=== PATIENT | female | born 1935 | race Caucasian/White ===

== ENCOUNTER → 2016-03-27 | Outpatient (CLI) | payer BC ==
[~2016-03-27] MED LIST: AMLO-114 PO; ASPEC81 PO; B-COTAB18 SL; CALC600T9 PO; CHOL1TAB42 PO; CLR10 PO; COEN10CA5 PO; DIFL0.0519; ESCI1TAB6 PO; LEVO88TA3 PO; LOSA100T65 PO; MIRT30TA2 PO; MULT-506 PO; OMEG10007 PO; PRT/20 PO; RANI300T2 PO; SIMV20TA2 PO
[2016-03-27 12:03] LABS: URINE APPEARANCE CLEAR (CLEAR); URINE BILIRUBIN NEG (NEG); URINE COLOR DK YELLOW; URINE NITRITE NEG (NEG); URINE PH 7.5 (4.5-7.5); URINE SPECIFIC GRAVITY 1.013 (1.000-1.030); UROBILINOGEN NEG (NEG)
[2016-03-27 12:05] LABS: MANUAL MICROSCOPIC REQUIRED? NO; REVIEW REQ? NO
== END | disposition home or self-care (01) ==
LOC: C.LAB 10:24
PROVIDERS: ATTEND Nurse Practitioner Family
DX: R32 Unspecified urinary incontinence (principal); R35.0 Frequency of micturition

== ENCOUNTER → 2016-05-02 | Outpatient (CLI) | payer BC | END | disposition home or self-care (01) | LOC: C.LAB 07:09 | PROVIDERS: ATTEND Family Medicine | DX: E03.9 Hypothyroidism, unspecified (principal) ==

== ENCOUNTER → 2016-05-22 | Outpatient (CLI) | payer BC | END | disposition home or self-care (01) | LOC: C.LABSPEC 17:10 | PROVIDERS: ATTEND Nurse Practitioner Family | DX: R32 Unspecified urinary incontinence (principal); R35.0 Frequency of micturition ==

== ENCOUNTER → 2016-08-16 | Outpatient (CLI) | payer BC ==
[2016-08-16 09:28] LABS: BASO % 1.3 %; BASO ABS # 0.07 K/uL (0-0.2); COMPLETE YES; EOS % 5.6 %; HEMATOCRIT 40.3 % (37-47); IG% 0.2 %; LYMPH % 28.8 %; LYMPH ABS # 1.55 K/uL (1.2-3.4); MEAN CORPUSCULAR HEMOGLOBIN 30.4 pg (25-34); MEAN PLATELET VOLUME 10.5 fL (7.4-10.4); MONO % 9.8 %; NEUT % 54.3 %; PLATELET COUNT 258 K/uL (130-400); RED BLOOD COUNT 4.24 M/uL (4.2-5.4); WHITE BLOOD COUNT 5.39 K/uL (4.8-10.8)
[2016-08-16 09:40] LABS: CALCIUM 9.2 mg/dl (8.5-10.1)
[2016-08-16 09:44] LABS: ALT/SGPT 30 U/L (12-78); BLOOD UREA NITROGEN 19 mg/dl (7-18); BUN/CREATININE RATIO 22.3 (10-20); CARBON DIOXIDE 29 mmol/L (21-32); CHLORIDE 108 mmol/L (98-107); CHOLESTEROL 197 mg/dl (0-200); CREATININE 0.86 mg/dl (0.60-1.20); GLUCOSE 92 mg/dl (70-99); POTASSIUM 4.1 mmol/L (3.5-5.1); SODIUM 145 mmol/L (136-145); TRIGLYCERIDES 182 mg/dl (0-150); VERY LOW DENSITY LIPOPROT CALC 36 mg/dl
[2016-08-16 09:47] LABS: ALB/GLOB RATIO 1.2 (0.9-2); ALKALINE PHOSPHATASE 72 U/L (45-117); AST/SGOT 19 U/L (15-37); CHOLESTEROL/HDL RATIO 4.2; HDL CHOLESTEROL 47 mg/dl; LDL CHOLESTEROL CALCULATED 114 mg/dl
== END | disposition home or self-care (01) ==
LOC: C.LAB 07:02
PROVIDERS: ATTEND Nurse Practitioner Adult Health
DX: I10 Essential (primary) hypertension (principal)

== ENCOUNTER → 2016-08-24 | Outpatient (CLI) | payer BC ==
--- NOTE | 2016-08-24 14:43 | MAMMOGRAPHY REPORT ---
BILATERAL DIGITAL SCREENING MAMMOGRAM WITH CAD: 08/24/2016 CLINICAL HISTORY: Routine screening. TECHNIQUE: Current study was also evaluated with a Computer Aided Detection (CAD) system. Bilateral CC and MLO views were obtained. COMPARISON: Comparison is made to exams dated: 08/24/2015 mammogram, 08/19/2014 mammogram, 08/18/2013 mamm ogram, 08/16/2012 mammogram, 08/16/2011 mammogram, and 08/10/2010 mammogram - [facility] er. BREAST COMPOSITION: There are scattered areas of fibroglandular density in both breasts. FINDINGS: No suspicious masses, calcifications, or areas of architectural distortion are noted in ei ther breast. There has been no significant interval change compared to prior exams. IMPRESSION: ACR BI-RADS CATEGORY 1: NEGATIVE There is no mammographic evidence of malignancy. A 1 year screening mammogram is recommended. The pa tient will receive written notification of the results. Approximately 10% of breast cancers are not detected with mammography. A negative mammographic report should not delay biopsy if a clinically suggestive mass is present. Valentina Monreal M.D. ah/:08/24/2016 10:28:22 Program Services Assistant: Austin MARISCAL(R)(M), [facility] letter sent: Normal 1/2 BI-RADS Code: ACR BI-RADS Category 1: Negative
== END | disposition home or self-care (01) ==
LOC: C.MAMM 09:40
PROVIDERS: ATTEND Obstetrics & Gynecology
DX: Z12.31 Encounter for screening mammogram for malignant neoplasm of breast (principal)

== ENCOUNTER → 2017-04-02 | Outpatient (CLI) | payer BC ==
[2017-04-02 09:42] LABS: BASO % 1.7 %; BASO ABS # 0.11 K/uL (0-0.2); EOS % 5.5 %; EOS ABS # 0.35 K/uL (0-0.5); HEMATOCRIT 40.6 % (37-47); HEMOGLOBIN 13.5 g/dL (12.0-16.0); IG# 0.01 K/uL (0.00-0.02); LYMPH % 27.1 %; LYMPH ABS # 1.74 K/uL (1.2-3.4); MEAN CELL VOLUME 93.8 fL (80-100); MEAN CORPUSCULAR HEMOGLOBIN 31.2 pg (25-34); MEAN CORPUSCULAR HGB CONC 33.3 g/dl (32-36); MEAN PLATELET VOLUME 11.1 fL (7.4-10.4); MONO ABS # 0.58 K/uL (0.11-0.59); NEUT % 56.5 %; NEUT ABS # 3.63 K/uL (1.4-6.5); PLATELET COUNT 251 K/uL (130-400); RED CELL DISTRIBUTION WIDTH CV 13.5 % (11.5-14.5); RED CELL DISTRIBUTION WIDTH SD 46.5 fL (36.4-46.3); WHITE BLOOD COUNT 6.42 K/uL (4.8-10.8)
[2017-04-02 10:26] LABS: ALT/SGPT 30 U/L (12-78); BLOOD UREA NITROGEN 14 mg/dl (7-18); CALCIUM 9.5 mg/dl (8.5-10.1); CARBON DIOXIDE 27 mmol/L (21-32); CHOLESTEROL 178 mg/dl (0-200); CREATININE 0.85 mg/dl (0.60-1.20); GLUCOSE 88 mg/dl (70-99); SODIUM 140 mmol/L (136-145)
[2017-04-02 10:37] LABS: ALKALINE PHOSPHATASE 62 U/L (45-117); AST/SGOT 23 U/L (15-37); LDL CHOLESTEROL CALCULATED 90 mg/dl; TOTAL PROTEIN 7.3 gm/dl (6.4-8.2)
== END | disposition home or self-care (01) ==
LOC: C.LAB 07:23
PROVIDERS: ATTEND Nurse Practitioner Adult Health
DX: E03.9 Hypothyroidism, unspecified (principal); R73.03 Prediabetes; E78.00 Pure hypercholesterolemia, unspecified; I10 Essential (primary) hypertension

== ENCOUNTER → 2017-05-14 | Outpatient (CLI) | payer BC | END | disposition home or self-care (01) | LOC: C.LAB 07:56 | PROVIDERS: ATTEND Family Medicine | DX: E03.9 Hypothyroidism, unspecified (principal) ==

== ENCOUNTER 2017-05-21 18:34 | Emergency (ER) | payer OTHER, BC ==
[~2017-05-21] VITALS: Ht 154.9 cm; Wt 61.3 kg
[2017-05-21 18:39] VITALS: TEMP 36.6; Ht 154.9 cm; Wt 61.3 kg
[2017-05-21 19:09] VITALS: BP 146/73; PULSE 98; O2SAT 94
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
== END 2017-05-21 19:09 | disposition home or self-care (01) ==
LOC: C.EDB 18:35 → C.EDA 19:09
DX: Z04.1 Encounter for examination and observation following transport accident (principal); V44.5XXA Car driver injured in collision with heavy transport vehicle or bus in traffic accident, initial encounter; Y92.411 Interstate highway as the place of occurrence of the external cause; K57.90 Diverticulosis of intestine, part unspecified, without perforation or abscess without bleeding; I10 Essential (primary) hypertension; Z79.82 Long term (current) use of aspirin; Z79.899 Other long term (current) drug therapy

== ENCOUNTER → 2017-10-29 | Outpatient (CLI) | payer BC ==
[~2017-10-29] MED LIST changes: -AMLO-114 PO; +AMLO10TA3 PO
== END | disposition home or self-care (01) ==
LOC: C.MAMM 10:12
PROVIDERS: ATTEND Family Medicine
DX: Z78.0 Asymptomatic menopausal state (principal); M85.89 Other specified disorders of bone density and structure, multiple sites

== ENCOUNTER 2022-11-02 02:21 | Observation (INO) ==
[2022-11-02] MEDS: SODIUM CHLORIDE 0.9% 1000ML 1,000 ML IV SCH ×2 (03:06→11:22)
[2022-11-02 03:30] LABS: Basophils # (auto) 0.07 K/uL (0-0.2); Basophils % (auto) 0.8 %; Eosinophils # (auto) 0.22 K/uL (0-0.50); Eosinophils % (auto) 2.6 %; Hematocrit (blood only) 41.4 % (37.0-47.0); Hemoglobin 13.8 g/dl (12.0-16.0); Immature Granulocytes # (auto) 0.02 K/uL (0.01-0.20); Immature Granulocytes % (auto) 0.2 %; Lymphocytes # (auto) 1.14 K/uL (1.2-3.4); Lymphocytes % (auto) 13.6 %; Mean Corpuscular Hemoglobin 31.4 pg (25.0-34.0); Mean Corpuscular Hgb Conc 33.3 g/dL (32.0-36.0); Mean Corpuscular Volume 94.1 fL (80.0-100.0); Mean Platelet Volume 10.2 fL (9.4-12.4); Monocytes # (auto) 0.62 K/uL (0.11-0.59); Monocytes % (auto) 7.4 %; Neutrophils # (auto) 6.33 K/uL (1.40-6.50); Neutrophils % (auto) 75.4 %; Platelet Count 245 K/uL (130-400); RDW Coefficient of Variation 12.7 % (11.5-14.5); RDW Standard Deviation 44.1 fL (36.4-46.3)
[2022-11-02 03:42] LABS: Calcium 10.7 mg/dl (8.6-10.3); Creatinine Clr Calc Pharmacy 35.8 ml/min; Est GFR (African American) 66.7 ml/min; Est GFR (Non-African American) 57.5 ml/min; Potassium 3.8 mmol/L (3.5-5.1)
[2022-11-02 03:48] LABS: Troponin I High Sensitivity 5.4 pg/ml (0-14)
[2022-11-02 03:51] LABS: Prothrombin Time 11.2 Seconds (9.0-12.0)
--- NOTE | 2022-11-02 03:58 | Emergency Department Note ---
Impression & Plan Abdominal pain, Acute pancreatitis ED Provider Note ED Provider Note NAME: ABBY ROSS AGE:87 SEX: Female : 1935 ARRIVES VIA: private vehicle INFORMANT: Patient ED PROVIDER(s): Aniya Weller DO CHIEF COMPLAINT: abdominal pain HPI: This is an 87-year-old female presents emerged department complaining of abdominal pain. She states symptoms first began this evening around 6 PM. She states pain has been intermittent but sharp in the left upper quadrant radiates slightly into the left flank. She denies fevers or chills, states she has been slightly nauseated with the pain and slightly dizzy, no overt vomiting, no syncope. She denies any recent change in urine, states her stools have been slightly softer/loose. She denies any black or bloody stools. She denies any recent change in activity, change in diet, sick contacts, or travel. She states she did recently start mirtazapine to help with sleep. This was just started 2 days ago. She denies any prior history of PUD, IBS, or IBD. She has had a prior partial hysterectomy, no other abdominal surgeries. PAST MEDICAL HISTORY:See Below PAST SURGICAL HISTORY:See Below FAMILY HISTORY:See Below SOCIAL HISTORY:See Below HOME MEDICATIONS:See Below ALLERGIES:See Below VITALS:See Below PHYSICAL EXAMINATION: GENERAL: alert, well appearing, well nourished, no distress, non-toxic EYE EXAM: normal conjunctiva, PERRL and EOM's grossly intact OROPHARYNX: no exudate, no erythema, lips, buccal mucosa, and tongue normal and mucous membranes are moist NECK: supple, no nuchal rigidity, no adenopathy, non-tender LUNGS: Clear to auscultation. Normal chest wall mechanics, no w/r/r HEART: no murmurs, S1 normal and S2 normal ABDOMEN: abdomen soft, non-tender, normo-active bowel sounds, no masses, no rebound or guarding. BACK: Back is symmetrical on inspection and there is no deformity, no midline tenderness, no CVA tenderness. SKIN: no rashes, petechiae, orbruising UPPER EXTREMITIES: upper extremities are grossly normal. FROM, nml pulses b/l. LOWER EXTREMITIES: No pitting edema. FROM, nml pulses b/l. NEURO EXAM: Normal sensorium, cranial nerves II-XII grossly intact, normal speech, no facial droop,nogross weakness of arms, no gross weakness of legs. Gross sensation intact. No ataxia. Vital Signs: reviewed and remarkable Differential Diagnosis: Gastritis, PUD, GERD, cholecystitis, pancreatitis, colitis, bowel obstruction, mesenteric ischemia, perforation, GI bleed, ACS, dissection, AAA, as well as others were considered MEDICAL DECISION MAKING: This is an 87-year-old female presents emergency department due to abrupt onset of abdominal pain. Patient was afebrile and vital signs stable. Labs drawn and sent, IV established, EKG performed at bedside interpreted by me and patient monitored on telemetry. She was given IV fluids, IV Tylenol for pain. Patient sent for CT of the abdomen pelvis. Patient's labs revealed significantly elevated lipase level, LFTs otherwise unremarkable. CT suggestive of pancreatitis and possible pancreatic lesions. Patient made aware of results and plan as well as need for additional evaluation. Case discussed with the hospitalist team for additional evaluation and management. Consultation(s): 0725: Discussed with Dr. Dyer, [facility] hospitalist team. ER Treatment Provided: See below Diagnostics Interpreted By Me: -ECG: Normal sinus at 82, first-degree AV block, normal axis, normal intervals, no acute ST/T wave changes -Cardiac Monitoring: An order was placed for continuous cardiac monitoring. The monitor shows a rate of 88 with normal sinus rhythm. -Laboratory studies: As stated above and show below. -Imaging studies: CT a/p - no obvious perf or sbo per my interpretation Triage Nursing Note Reviewed Prior/Outside Records Reviewed Past Med/Surg History Medical History Abnormal finding on mammography Anemia due to blood loss (05/20/11) Depression Fibromyalgia GERD without esophagitis Headache History of breast pain History of cellulitis right hand History of genital warts Hypertension Hypothyroidism Osteopenia Peripheral neuropathy Prediabetes Serotonin withdrawal syndrome Urinary incontinence Varicella Vitamin D deficiency Surgical History H/O tubal ligation H/O vaginal hysterectomy Hx of cataract surgery Hx of total knee arthroplasty bilateral knees S/P correction of deviated nasal septum Family History Unknown Prostate cancer Myocardial infarction Father Myocardial infarction Sister Denies family history of Ovarian cancer Breast cancer Colorectal cancer Social History Smoking Status: Former smoker Second Hand Exposure: No; Do You Dip or Chew Tobacco: No; Hx Alcohol Use: Yes Alcohol type: wine Hx Substance Use: No Preferred Language: [place] Communication Ability: Effective Visual Impairment: No Limitations Hearing Ability: Use of Hearing Aid Greaser Operator Required: No Beliefs That Will Affect Care: None marital status: / Current Living Situation: Alone Current Living Situation Comment: daughter and son in law are living with her while their house is built current occupational status: retired current occupation: worked at [employer] How many Children do You have: 2 Feels Safe at Home: Yes Childhood Exposure to Second-Hand Smoke: No Diet: regular caffeine: Yes during the past year weight has: remained stable Dental Care, Regularly: Yes Physical Activity Frequency: 1-2 Times per Week Seatbelt Use: always Sunscreen Use: Yes Assistive Devices: None Allergies Allergies Allergy/AdvReac Type Severity Reaction Status Date / Time house dust Allergy Verified 09/27/22 13:44 mold Allergy Verified 09/27/22 13:44 No Known Drug Allergies Allergy Verified 10/30/22 11:19 pollen extracts Allergy Verified 09/27/22 13:44 Home Meds Home Medications Medication Instructions Recorded Confirmed multivitamin (Daily Multiple 1 tab PO DAILY 10/28/18 11/02/22 tablet) calcium carb,cit ER 600 mg-vit D3 2 tab PO DAILY 10/29/18 11/02/22 12.5 mcg (500 unit) tablet,ext.rel amlodipine 10 mg tablet 10 mg PO DAILY 11/02/22 11/02/22 meclizine 25 mg tablet 25 mg PO TID PRN Dizziness 11/02/22 11/02/22 pantoprazole 40 mg tablet,delayed 40 mg PO DAILY 11/02/22 11/02/22 release vibegron 75 mg tablet (Gemtesa) 75 mg PO DAILY 11/02/22 11/02/22 Previous Rx's Medication Instructions Recorded levothyroxine 75 mcg tablet 75 mcg PO .COMPLEX #36 tabs 01/23/22 simvastatin 20 mg tablet 20 mg PO QPM #90 tabs 02/16/22 mupirocin 2 % topical ointment 1 applic topical .qhs #15 grams 03/07/22 levothyroxine 88 mcg tablet 88 mcg PO 5XWK #64 tabs 06/07/22 losartan 100 mg tablet 100 mg PO DAILY #90 tabs 10/24/22 mirtazapine 15 mg tablet 15 mg PO .COMPLEX #30 tabs 10/30/22 Results & Data (ED) Vital Signs Vital Signs - 24 hr 11/02/22 04:31 11/02/22 04:57 11/02/22 05:00 Pulse Rate 88 85 83 Pulse Rate [Apical] Pulse Rhythm [Apical] Respiratory Rate 14 15 Respiratory Effort / Characteristics Respiratory Depth Blood Pressure 139/69 149/73 H Blood Pressure [Left Arm] Blood Pressure Mean 92 98 Blood Pressure Mean [Left Arm] Pulse Oximetry 94 Oxygen Delivery Method Room Air 11/02/22 05:30 11/02/22 06:00 11/02/22 06:30 Pulse Rate 87 84 81 Pulse Rate [Apical] Pulse Rhythm [Apical] Respiratory Rate 13 13 15 Respiratory Effort / Characteristics Respiratory Depth Blood Pressure 153/76 H 160/74 H 146/68 H Blood Pressure [Left Arm] Blood Pressure Mean 101 102 94 Blood Pressure Mean [Left Arm] Pulse Oximetry 93 93 94 Oxygen Delivery Method Room Air Room Air Room Air 11/02/22 07:16 11/02/22 07:15 Pulse Rate 88 Pulse Rate [Apical] 87 Pulse Rhythm [Apical] Regular Respiratory Rate 18 Respiratory Effort / Characteristics Non-Labored Respiratory Depth Normal Blood Pressure Blood Pressure [Left Arm] 162/82 H Blood Pressure Mean Blood Pressure Mean [Left Arm] 108 Pulse Oximetry 95 Oxygen Delivery Method Room Air Laboratory Data 11/02/22 03:08 11/02/22 03:08 Lab Results 11/02/22 11/02/22 11/02/22 Range/Units 03:08 03:08 03:08 WBC 8.40 (4.8-10.8) K/ul RBC 4.40 (4.20-5.40) M/uL Hgb 13.8 (12.0-16.0) g/dl Hct 41.4 (37.0-47.0) % MCV 94.1 (80.0-100.0) fL MCH 31.4 (25.0-34.0) pg MCHC 33.3 (32.0-36.0) g/dL RDW Std Deviation 44.1 (36.4-46.3) fL RDW Coeff of [place]ar 12.7 (11.5-14.5) % Plt Count 245 (130-400) K/uL MPV 10.2 (9.4-12.4) fL Immature Gran % (Auto) 0.2 % Neut % (Auto) 75.4 % Lymph % (Auto) 13.6 % [place] % (Auto) 7.4 % Eos % (Auto) 2.6 % Baso % (Auto) 0.8 % Neut # (Auto) 6.33 (1.40-6.50) K/uL Lymph # (Auto) 1.14 L (1.2-3.4) K/uL [place] # (Auto) 0.62 H (0.11-0.59) K/uL Eos # (Auto) 0.22 (0-0.50) K/uL Baso # (Auto) 0.07 (0-0.2) K/uL Immature Gran # (Auto) 0.02 (0.01-0.20) K/uL PT 11.2 (9.0-12.0) Seconds INR 1.0 (0.9-1.1) Sodium (136-145) mmol/L Potassium (3.5-5.1) mmol/L Chloride (98-107) mmol/L Carbon Dioxide (21-32) mmol/L Anion Gap (3-11) BUN (6-23) mg/dl Creatinine (0.6-1.2) mg/dl Est Cr Clr Drug Dosing ml/min Est GFR ( Amer) ml/min Est GFR (Non-Af Amer) ml/min BUN/Creatinine Ratio (10-20) Glucose (70-99(Fasting)) mg/dl Lactate 0.8 (0.4-2.0) mmol/L Calcium (8.6-10.3) mg/dl Magnesium (1.7-2.4) mg/dl Total Bilirubin (0.2-1.0) mg/dl AST (13-39) U/L ALT (7-52) U/L Alkaline Phosphatase (34-104) U/L Troponin I High Sens (0-14) pg/ml Total Protein (6.0-8.3) gm/dl Albumin (3.4-5.0) gm/dl Globulin (2.5-4.0) gm/dl Albumin/Globulin Ratio (0.9-2) Lipase (11-82) U/L 11/02/22 Range/Units 03:08 WBC (4.8-10.8) K/ul RBC (4.20-5.40) M/uL Hgb (12.0-16.0) g/dl Hct (37.0-47.0) % MCV (80.0-100.0) fL MCH (25.0-34.0) pg MCHC (32.0-36.0) g/dL RDW Std Deviation (36.4-46.3) fL RDW Coeff of Gunnar (11.5-14.5) % Plt Count (130-400) K/uL MPV (9.4-12.4) fL Immature Gran % (Auto) % Neut % (Auto) % Lymph % (Auto) % [place] % (Auto) % Eos % (Auto) % Baso % (Auto) % Neut # (Auto) (1.40-6.50) K/uL Lymph # (Auto) (1.2-3.4) K/uL [place] # (Auto) (0.11-0.59) K/uL Eos # (Auto) (0-0.50) K/uL Baso # (Auto) (0-0.2) K/uL Immature Gran # (Auto) (0.01-0.20) K/uL PT (9.0-12.0) Seconds INR (0.9-1.1) Sodium 141 (136-145) mmol/L Potassium 3.8 (3.5-5.1) mmol/L Chloride 106 (98-107) mmol/L Carbon Dioxide 28 (21-32) mmol/L Anion Gap 7 (3-11) BUN 20 (6-23) mg/dl Creatinine 0.91 (0.6-1.2) mg/dl Est Cr Clr Drug Dosing 35.8 ml/min Est GFR ( Amer) 66.7 ml/min Est GFR (Non-Af Amer) 57.5 ml/min BUN/Creatinine Ratio 22.0 H (10-20) Glucose 144 H (70-99(Fasting)) mg/dl Lactate (0.4-2.0) mmol/L Calcium 10.7 H (8.6-10.3) mg/dl Magnesium 2.0 (1.7-2.4) mg/dl Total Bilirubin 0.5 (0.2-1.0) mg/dl AST 22 (13-39) U/L ALT 19 (7-52) U/L Alkaline Phosphatase 54 (34-104) U/L Troponin I High Sens 5.4 (0-14) pg/ml Total Protein 7.1 (6.0-8.3) gm/dl Albumin 4.4 (3.4-5.0) gm/dl Globulin 2.7 (2.5-4.0) gm/dl Albumin/Globulin Ratio 1.6 (0.9-2) Lipase 3680 H (11-82) U/L Administered Medications Amlodipine Besylate (Amlodipine Besylate 5 Mg Tab) 10 mg PO QAM [facility] Stop: 12/02/22 10:57 Last Admin: 11/02/22 12:06 Dose: 10 mg Documented By: ANNAMARIA Enoxaparin Sodium (Enoxaparin Inj 40 Mg/0.4 Ml Syr) 40 mg SQ Q24H [facility]; Protocol Stop: 12/02/22 10:57 Last Admin: 11/02/22 12:05 Dose: 40 mg Documented By: ANNAMARIA Lactated Ringer's (Lr) 1,000 mls @ 150 mls/hr IV .Q6H40M [facility] Stop: 12/02/22 10:57 Last Admin: 11/02/22 20:12 Dose: 150 mls/hr Documented By: Infusion: 11/02/22 18:47 Dose: 150 mls/hr Documented By: Admin: 11/02/22 12:06 Dose: 150 mls/hr Documented By: ANNAMARIA Famotidine 20 mg/ Syringe 5 mls @ 2.5 mls/min IV Q12 [facility] Stop: 12/02/22 10:57 Last Admin: 11/02/22 21:09 Dose: 2.5 mls/min Documented By: Admin: 11/02/22 12:05 Dose: 2.5 mls/min Documented By: ANNAMARIA Levothyroxine Sodium (Levothyroxine Sodium 88 Mcg Tablet) 88 mcg PO [id number]@0630 RUBY Stop: 12/02/22 10:57 Last Admin: 11/02/22 12:05 Dose: 88 mcg Documented By: ANNAMARIA Losartan Potassium (Losartan Potassium 50 Mg Tab) 100 mg PO DAILY RUBY Stop: 12/02/22 10:57 Last Admin: 11/02/22 12:04 Dose: 100 mg Documented By: ANNAMARIA Mirtazapine (Mirtazapine Tab 15 Mg Tab) 7.5 mg PO HS RUBY Stop: 12/02/22 20:59 Last Admin: 11/02/22 20:10 Dose: 7.5 mg Documented By: FARTUN Pantoprazole Sodium (Pantoprazole 40 Mg Tab) 40 mg PO BID RUBY Stop: 12/02/22 10:57 Last Admin: 11/02/22 20:10 Dose: 40 mg Documented By: Admin: 11/02/22 12:04 Dose: 40 mg Documented By: ANNAMARIA Discontinued Medications Gadobutrol (Gadobutrol 65ml Vial) 5.5 ml IV ONCE ONE Stop: 11/02/22 22:37 Last Admin: 11/02/22 22:36 Dose: 5.5 ml Documented By: MAREK Sodium Chloride (Nss 1000ml) 1,000 mls @ 125 mls/hr IV .Q8H RUBY Stop: 12/02/22 02:44 Last Admin: 11/02/22 11:22 Dose: Not Given Documented By: Infusion: 11/02/22 11:22 Dose: 0 mls/hr Documented By: Admin: 11/02/22 03:06 Dose: 125 mls/hr Documented By: RYAN Acetaminophen (Ofirmev) 1,000 mg in 100 mls @ 400 mls/hr IV NOW STA Stop: 11/02/22 04:35 Last Infusion: 11/02/22 05:07 Dose: 0 mls/hr Documented By: Admin: 11/02/22 04:28 Dose: 400 mls/hr Documented By: RYAN Ioversol (Optiray 320 100ml) 100 ml IV ONCE ONE Stop: 11/02/22 04:19 Last Admin: 11/02/22 04:18 Dose: 93 ml Documented By: HUBERT Morphine Sulfate (Morphine Sulfate 2 Mg/Ml Carp) 2 mg IV NOW STA Stop: 11/02/22 06:50 Last Admin: 11/02/22 09:18 Dose: Not Given Documented By: ANNAMARIA Ondansetron HCl (Ondansetron Inj 2 Mg/Ml 2 Ml Vial) 4 mg IV NOW STA Stop: 11/02/22 04:22 Last Admin: 11/02/22 04:27 Dose: 4 mg Documented By: RYAN Simvastatin (Simvastatin 20 Mg Tab) 20 mg PO QPM RUBY Stop: 12/02/22 20:59 Last Admin: 11/02/22 20:10 Dose: Not Given Documented By: FARTUN Imaging Data Radiologist's Impression: Abdomen/Pelvis CT 11/02/22 03:[address] WITH IV CONTRAST CT DOSE: 536.49 mGy.cm HISTORY: LUQ pain, left flank pain TECHNIQUE: Multiaxial CT images of the abdomen and pelvis were performed following the use of intravenous contrast. A dose lowering technique was utilized adhering to the principles of ALARA. COMPARISON STUDY: Abdomen and pelvis CT 03/01/2012. FINDINGS: Lung bases are clear. No pneumoperitoneum. No pneumatosis. No acute fractures identified. The liver, gallbladder, spleen, and adrenal glands unremarkable. The main portal vein is patent. No retroperitoneal lymphadenopathy. Normal caliber abdominal aorta. No pelvic free fluid or pelvic lymphadenopathy. Normal bladder. Prior hysterectomy. Colonic diverticulosis. No evidence for acute dive rticulitis. Moderate fecal retention. No bowel wall thickening or obstruction. Normal appendix. Hypodense foci within the pancreatic head on image 126 which measures 13 mm. This favors a cystic neoplasm of the pancreas such as a side branch intraductal papillary mucinous neoplasm. Mild heterogeneity and peripancreatic fat stranding/fluid at the tail the pancreas. This likely represents an acute pancreatitis. Multiple bilateral renal cysts are noted. There is a 15 mm heterogeneous enhancing lesion within the upper pole the right kidney. This was previously described as an angiomyolipoma. No hydronephrosis. Mild fullness within the left renal collecting system again noted. There is mild bilateral perinephric edema. 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 IMPRESSION: 1. Mild heterogeneity and peripancreatic fat stranding/fluid at the tail the pancreas. This likely represents an acute pancreatitis. Recommend correlation with pancreatic enzymes. 2. A 15 mm right upper pole renal lesion is again noted. This was previously described as an angiomyolipoma. 3. Mild fullness within the left renal collecting system without nu hydronephrosis. No renal or ureteral stones identified. This is similar to the prior study. ACT 112: Negative or not required by law. Electronically signed by: Brett Ayno M.D. 11/02/2022 6:58 AM Discharge Plan Visit Data Chief Complaint: Abdominal Pain Stated Complaint: ABD PAIN ED Provider: Aniya Weller Discharge Problem: Abdominal pain, Acute pancreatitis Patient Disposition: Admitted As Inpatient Discharge Instructions Interventions: ED Discharge Assessment Last Done: 11/02/22 10:57
[2022-11-02] MEDS ORDERED: OPTIRAY 320 100ml IV ONE (04:18)
[2022-11-02] MEDS ORDERED: ONDANSETRON INJ 2 MG/ML 2 ML VIAL IV STA (04:21)
[2022-11-02] MEDS ORDERED: ACETAMINOPHEN 1,000 MG/100 ML VIAL IV STA (04:21)
[2022-11-02 04:36] LABS: Albumin Globulin Ratio 1.6 (0.9-2); Albumin Level 4.4 gm/dl (3.4-5.0); Bilirubin,Total 0.5 mg/dl (0.2-1.0); Globulin 2.7 gm/dl (2.5-4.0); Total Protein 7.1 gm/dl (6.0-8.3)
[2022-11-02] MEDS ORDERED: MoRPHine SULFATE 2 MG/ML CARP IV STA (06:49)
--- NOTE | 2022-11-02 07:01 | CT Scan Report ---
ABDOMEN AND PELVIS CT WITH IV CONTRAST CT DOSE: 536.49 mGy.cm HISTORY: LUQ pain, left flank pain TECHNIQUE: Multiaxial CT images of the abdomen and pelvis were performed following the use of intrave nous contrast. A dose lowering technique was utilized adhering to the principles of ALARA. COMPARISON STUDY: Abdomen and pelvis CT 03/01/2012. FINDINGS: Lung bases are clear. No pneumoperitoneum. No pneumatosis. No acute fractures identified. The liver, gallbladder, spleen, and adrenal glands unremarkable. The main portal vein is patent. No retroperiton eal lymphadenopathy. Normal caliber abdominal aorta. No pelvic free fluid or pelvic lymphadenopathy. Normal bladder. Prior hysterectomy. Colonic diverticulosis. No evidence for acute diverticulitis. Mod erate fecal retention. No bowel wall thickening or obstruction. Normal appendix. Hypodense foci withi n the pancreatic head on image 126 which measures 13 mm. This favors a cystic neoplasm of the pancrea s such as a side branch intraductal papillary mucinous neoplasm. Mild heterogeneity and peripancreati c fat stranding/fluid at the tail the pancreas. This likely represents an acute pancreatitis. Multipl e bilateral renal cysts are noted. There is a 15 mm heterogeneous enhancing lesion within the upper p ole the right kidney. This was previously described as an angiomyolipoma. No hydronephrosis. Mild ful lness within the left renal collecting system again noted. There is mild bilateral perinephric edema. 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 IMPRESSION: 1. Mild heterogeneity and peripancreatic fat stranding/fluid at the tail the pancreas. This likely re presents an acute pancreatitis. Recommend correlation with pancreatic enzymes. 2. A 15 mm right upper pole renal lesion is again noted. This was previously described as an angiomyo lipoma. 3. Mild fullness within the left renal collecting system without nu hydronephrosis. No renal or ur eteral stones identified. This is similar to the prior study. ACT 112: Negative or not required by law. Electronically signed by: Brett Ayon M.D. 11/02/2022 6:58 AM
--- NOTE | 2022-11-02 07:34 | History & Physical Report ---
Date of Service November 02, 2022 Assessment & Plan (1) Acute pancreatitis: Plan: Presents with first episode of acute pancreatitis with epigastric abdominal pain, evidence of pancreatitis at the tail on CT abdomen/pelvis, and elevated lipase in the 3000 range LFTs are normal. CT abdomen/pelvis without abnormalities of the biliary tract or gallbladder. Did have hypodense lesion in the head of the pancreas. She does not drink alcohol. She did recently start mirtazapine and Gemtesa but not sure if these are associated with pancreatitis necessarily. Calcium is mildly elevated but likely more due to mild dehydration. Pain is already improved with 1 dose of morphine and Tylenol IV in the ER. Received IV Zofran for nausea -Admit to medical/surgical unit -Keep n.p.o., start LR at 150 MLS per hour -Continue morphine for pain, Tylenol for mild pain, and Zofran for nausea as needed -Consult GI given pancreatic head lesion and pancreatitis of unknown etiology- ordered MRCP which is pending -Possible EUS/ERCP tomorrow as per GI based on MRCP results -Follow CBC, CMP, lipase, and triglycerides in the morning (2) Hypertension: Plan: Blood pressures are controlled -Continue home amlodipine and losartan (3) Vitamin D deficiency: Plan: Hold home calcium and vitamin D given hypercalcemia (4) Prediabetes: Plan: Hemoglobin A1c 6.1% in 08/2022 No need for Accu-Cheks here unless blood sugar on a.m. labs becomes elevated (5) Osteopenia: Plan: Noted Holding home vitamin D and calcium (6) Hypothyroidism: Plan: TSH normal at 2.0 in 08/2022 Continue home levothyroxine which is 75 mcg on 2 days a week and 88 mcg on 3 days a week (7) GERD without esophagitis: Plan: Continue PPI Add IV Pepcid with ongoing pancreatitis (8) Depression: Plan: Continue mirtazapine (9) Vertigo: Plan: Has had issues with hearing loss and vertigo, recently had MRI of the internal auditory canal 2 weeks ago which was normal Continue meclizine as needed and follow-up with ENT and audiology as an outpatient Already is in vestibular therapy with PT Plan DVT prophylaxis-Lovenox SQ, SCDs Disposition-admit to medical/surgical unit on observation History of Present Illness Chief Complaint: Abdominal pain Primary Care Provider: Shaina Roman MD This patient is an 87-year-old female with a history of hypothyroidism, asthma, prediabetes, osteopenia, HTN, IBS, fibromyalgia, depression, GERD, hyperlipidemia, who presents to the ER with left upper quadrant abdominal pain radiating to the left flank starting yesterday evening at 6 PM. No fevers or chills but has had some nausea but no vomiting with the pain and feels slightly dizzy. She was at her PCP office 3 days ago with complaints of intermittent nausea and dizziness x2 weeks and had been started on mirtazapine also at that time for difficulty with sleep. She also recently started Gemtesa for overactive bladder. Stools have been somewhat loose but no black tarry stools or blood in her stool. No urinary symptoms. No history of abdominal surgeries except a hysterectomy. She tried taking antacids at home without any relief. In the ER, she was afebrile and mildly tachycardic and mildly hypertensive. Pulse ox was normal on room air. She was found to have an elevated lipase at 3680, but labs were otherwise unremarkable except a mildly elevated calcium at 1 0.7. LFTs were normal. A CT of the abdomen/pelvis showed pancreatitis in the tail of the pancreas as well as a 13 mm pancreatic head hypodense foci favoring cystic neoplasm. She also had mild fullness in the left renal collecting system without hydronephrosis similar to prior study, no ureteral stones identified. The gallbladder appeared normal. She was given IV fluids, IV morphine and Zofran as well as Tylenol. She will be admitted to the hospital service for acute pancreatitis. Allergies Allergy/AdvReac Type Severity Reaction Status Date / Time house dust Allergy Verified 09/27/22 13:44 mold Allergy Verified 09/27/22 13:44 No Known Drug Allergies Allergy Verified 10/30/22 11:19 pollen extracts Allergy Verified 09/27/22 13:44 Home Medications Medication Instructions Recorded Confirmed Type multivitamin (Daily Multiple 1 tab PO DAILY 10/28/18 11/02/22 History tablet) calcium carb,cit ER 600 mg-vit D3 2 tab PO DAILY 10/29/18 11/02/22 History 12.5 mcg (500 unit) tablet,ext.rel levothyroxine 75 mcg tablet 75 mcg PO .COMPLEX #36 tabs 01/23/22 11/02/22 Rx simvastatin 20 mg tablet 20 mg PO QPM #90 tabs 02/16/22 11/02/22 Rx mupirocin 2 % topical ointment 1 applic topical .qhs #15 grams 03/07/22 11/02/22 Rx levothyroxine 88 mcg tablet 88 mcg PO 5XWK #64 tabs 06/07/22 11/02/22 Rx losartan 100 mg tablet 100 mg PO DAILY #90 tabs 10/24/22 11/02/22 Rx mirtazapine 15 mg tablet 15 mg PO .COMPLEX #30 tabs 10/30/22 11/02/22 Rx amlodipine 10 mg tablet 10 mg PO DAILY 11/02/22 11/02/22 History meclizine 25 mg tablet 25 mg PO TID PRN Dizziness 11/02/22 11/02/22 History pantoprazole 40 mg tablet,delayed 40 mg PO DAILY 11/02/22 11/02/22 History release vibegron 75 mg tablet (Gemtesa) 75 mg PO DAILY 11/02/22 11/02/22 History Past Med/Surg History Medical History (Updated 11/02/22 @ 21:25 by Dyan Dyer MD) Abnormal finding on mammography Anemia due to blood loss (05/20/11) Depression Fibromyalgia GERD without esophagitis Headache History of breast pain History of cellulitis right hand History of genital warts Hypertension Hypothyroidism Osteopenia Peripheral neuropathy Prediabetes Serotonin withdrawal syndrome Urinary incontinence Varicella Vitamin D deficiency Surgical History H/O tubal ligation H/O vaginal hysterectomy Hx of cataract surgery Hx of total knee arthroplasty bilateral knees S/P correction of deviated nasal septum Family History Unknown Prostate cancer Myocardial infarction Father Myocardial infarction Sister Denies family history of Ovarian cancer Breast cancer Colorectal cancer Social History Smoking Status: Former smoker Second Hand Exposure: No; Do You Dip or Chew Tobacco: No; Hx Alcohol Use: Yes Alcohol type: wine Hx Substance Use: No Preferred Language: Panamanian Communication Ability: Effective Visual Impairment: No Limitations Hearing Ability: Use of Hearing Aid Flotation Tender Helper Required: No Beliefs That Will Affect Care: None marital status: / Current Living Situation: Alone Current Living Situation Comment: daughter and son in law are living with her while their house is built current occupational status: retired current occupation: worked at [employer] How many Children do You have: 2 Feels Safe at Home: Yes Childhood Exposure to Second-Hand Smoke: No Diet: regular caffeine: Yes during the past year weight has: remained stable Dental Care, Regularly: Yes Physical Activity Frequency: 1-2 Times per Week Seatbelt Use: always Sunscreen Use: Yes Assistive Devices: None Review of Systems Review of Systems: All systems reviewed & are unremarkable except as noted in HPI & below No fevers or chills, no headaches Has chronic urinary frequency Physical Exam Constitutional: WD/WN, vitals as above Eyes: PERRL, conjunctivae normal, anicteric sclerae ENMT: external ear and nose normal, oropharynx normal Neck: trachea midline, no thyromegaly Respiratory: normal respiratory effort, lungs clear to auscultation Cardiovascular: RRR, no murmur, no edema Chest (Breasts): Chest: normal inspection of chest Gastrointestinal (Abdomen): Inspection/Auscultation: abdomen normal to inspection and normal bowel sounds; abdomen not distended Percussion/Palpation: + abdomen tender (Mild positive tenderness to palpation epigastric region without guarding ) and abdomen soft; no abdominal mass Musculoskeletal: Extremities: extremities normal to inspection; no cyanosis and no clubbing Skin: no rashes, warm and dry Neurologic: moves all extremities and awake; no focal motor deficits Psychiatric: A+Ox3, euthymic affect Lymphatic: no lymphedema Results & Data Results & Data Vital Signs (Past 12 Hours) Vital Signs Temp Pulse Pulse Resp BP BP Pulse Ox 11/02/22 07:16 87 18 162/82 H 95 11/02/22 06:30 81 15 146/68 H 94 11/02/22 06:00 84 13 160/74 H 93 11/02/22 05:30 87 13 153/76 H 93 11/02/22 05:00 83 15 149/73 H 94 11/02/22 04:57 85 14 139/69 11/02/22 04:31 88 11/02/22 04:00 85 18 97 11/02/22 03:30 85 17 96 11/02/22 03:00 88 16 95 11/02/22 02:46 88 17 169/68 H 11/02/22 02:44 91 H 15 161/70 H 95 11/02/22 02:45 89 11/02/22 02:27 36.7 C 102 H 16 138/71 97 O2 Del Method 11/02/22 07:16 Room Air 11/02/22 06:30 Room Air 11/02/22 06:00 Room Air 11/02/22 05:30 Room Air 11/02/22 05:00 Room Air 11/02/22 04:57 11/02/22 04:31 11/02/22 04:00 Room Air 11/02/22 03:30 Room Air 11/02/22 03:00 Room Air 11/02/22 02:46 11/02/22 02:44 Room Air 11/02/22 02:45 11/02/22 02:27 Room Air Laboratory Results CBC, INR, CMP, lipase, reviewed Diagnostic Findings Abdomen/Pelvis CT 11/02/22 03:[address] WITH IV CONTRAST CT DOSE: 536.49 mGy.cm HISTORY: LUQ pain, left flank pain TECHNIQUE: Multiaxial CT images of the abdomen and pelvis were performed following the use of intravenous contrast. A dose lowering technique was utilized adhering to the principles of ALARA. COMPARISON STUDY: Abdomen and pelvis CT 03/01/2012. FINDINGS: Lung bases are clear. No pneumoperitoneum. No pneumatosis. No acute fractures identified. The liver, gallbladder, spleen, and adrenal glands unremarkable. The main portal vein is patent. No retroperitoneal lymphadenopathy. Normal caliber abdominal aorta. No pelvic free fluid or pelvic lymphadenopathy. Normal bladder. Prior hysterectomy. Colonic diverticulosis. No evidence for acute diverticulitis. Moderate fecal retention. No bowel wall thickening or obstruction. Normal appendix. Hypodense foci within the pancreatic head on image 126 which measures 13 mm. This favors a cystic neoplasm of the pancreas such as a side branch intraductal papillary mucinous neoplasm. Mild heterogeneity and peripancreatic fat stranding/fluid at the tail the pancreas. This likely represents an acute pancreatitis. Multiple bilateral renal cysts are noted. There is a 15 mm heterogeneous enhancing lesion within the upper pole the right kidney. This was previously described as an angiomyolipoma. No hydronephrosis. Mild fullness within the left renal collecting system again noted. There is mild bilateral perinephric edema. 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 IMPRESSION: 1. Mild heterogeneity and peripancreatic fat stranding/fluid at the tail the pancreas. This likely represents an acute pancreatitis. Recommend correlation with pancreatic enzymes. 2. A 15 mm right upper pole renal lesion is again noted. This was previously described as an angiomyolipoma. 3. Mild fullness within the left renal collecting system without nu hydronephrosis. No renal or ureteral stones identified. This is similar to the prior study. ACT 112: Negative or not required by law. Electronically signed by: Brett Ayon M.D. 11/02/2022 6:58 AM ECG Additional Comments: ECG on 11/02/2022 at 0 2:50 AM with sinus rhythm, rate 82, first-degree AV block, septal infarct Code Status & VTE Plan Code Status Full code VTE Prophylaxis Plan VTE Prophylaxis will be ordered: Yes PG Care Time/CCT Total # of Minutes Spent Total Time Spent with Patient: Total time spent is greater than 50% in coordination of care (as documented) at patient's floor/unit and/or counseling patient: Coding Level of Care Code 54340 INT INP/OBS CARE 3/75MIN Diagnoses Acute pancreatitis K85.90 Hypertension I10 Vitamin D deficiency E55.9 Prediabetes R73.03 Osteopenia M85.80 Hypothyroidism E03.9 GERD without esophagitis K21.9 Depression F32.9 Vertigo R42
[2022-11-02] MEDS ORDERED: ACETAMINOPHEN 325 MG TAB PO PRN (10:58)
[2022-11-02] MEDS ORDERED: MECLIZINE HCL 25 MG TAB PO PRN (10:58)
[2022-11-02] MEDS ORDERED: ENOXAPARIN INJ 40 MG/0.4 ML SYR SQ SCH (10:58)
[2022-11-02] MEDS ORDERED: ONDANSETRON INJ 2 MG/ML 2 ML VIAL IV PRN (10:58)
[2022-11-02] MEDS ORDERED: MoRPHine SULFATE 2 MG/ML CARP IV PRN (10:58)
--- NOTE | 2022-11-02 11:44 | Gastrointestinal Consultation ---
Date of Consultation November 02, 2022 Assessment & Plan (1) Pancreatitis: Plan 1. MRCP 2. IV fluids 3. NPO 4. Further recommendations to follow MRCP. Supervising Physician Co-Signing Physician Notes Attg: Pt with abrupt onset upper abd pain, LFT's WNL but lip > 3000. No prior h/o similar pain. Recently began Gemtesa, Remeron. 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 A/p: Pancreatitis with imaging showing cystic lesion at HOP and PD dilation in tail - Request MRI pancreas + MRCP, diet as tolerated/fluids. History of Present Illness Reason for Consultation: acute pancreatitis,pancreatic head lesion Requesting Physician: Dr. Dyer Attending Physician: Dyan Dyer MD History of Present Illness Ms. Myra Espinoza is an 87 yr old female pt of Dr. Abel hart a hx of fibromyalgia, hypothyroidism, peripheral neuropathy, balance issues, pre-DM, Asthma and IBS. She presented to the ED this morning for LUQ pain that began abruptly with some nausea yesterday around 5:30PM. On arrival, Lipase 3680, CT suggestive of a pancreas head cyst and pancreatitis. LFTs are normal. Pain is improved but continues. She denies any fevers, chills, jaundice or other S/S of illness. She denies any current or prior hx of increased alcohol intake. Brief smoking hx - stopped 65 years ago. No prior similar pain. No hx of pancreas or liver issues. Has recently started Remeron about 3 m ago and Gemteza a few days ago. Allergies Allergy/AdvReac Type Severity Reaction Status Date / Time house dust Allergy Verified 09/27/22 13:44 mold Allergy Verified 09/27/22 13:44 No Known Drug Allergies Allergy Verified 10/30/22 11:19 pollen extracts Allergy Verified 09/27/22 13:44 Home Medications Medication Instructions Recorded Confirmed Type multivitamin (Daily Multiple 1 tab PO DAILY 10/28/18 11/02/22 History tablet) calcium carb,cit ER 600 mg-vit D3 2 tab PO DAILY 10/29/18 11/02/22 History 12.5 mcg (500 unit) tablet,ext.rel levothyroxine 75 mcg tablet 75 mcg PO .COMPLEX #36 tabs 01/23/22 11/02/22 Rx simvastatin 20 mg tablet 20 mg PO QPM #90 tabs 02/16/22 11/02/22 Rx mupirocin 2 % topical ointment 1 applic topical .qhs #15 grams 03/07/22 11/02/22 Rx levothyroxine 88 mcg tablet 88 mcg PO 5XWK #64 tabs 06/07/22 11/02/22 Rx losartan 100 mg tablet 100 mg PO DAILY #90 tabs 10/24/22 11/02/22 Rx mirtazapine 15 mg tablet 15 mg PO .COMPLEX #30 tabs 10/30/22 11/02/22 Rx amlodipine 10 mg tablet 10 mg PO DAILY 11/02/22 11/02/22 History meclizine 25 mg tablet 25 mg PO TID PRN Dizziness 11/02/22 11/02/22 History pantoprazole 40 mg tablet,delayed 40 mg PO DAILY 11/02/22 11/02/22 History release vibegron 75 mg tablet (Gemtesa) 75 mg PO DAILY 11/02/22 11/02/22 History Patient History Medical History (Updated 11/02/22 @ 11:43 by JUAN Gregorio) Abnormal finding on mammography Anemia due to blood loss (05/20/11) Depression Fibromyalgia GERD without esophagitis Headache History of breast pain History of cellulitis right hand History of genital warts Hypertension Hypothyroidism Osteopenia Peripheral neuropathy Prediabetes Serotonin withdrawal syndrome Urinary incontinence Varicella Vitamin D deficiency Surgical History H/O tubal ligation H/O vaginal hysterectomy Hx of cataract surgery Hx of total knee arthroplasty bilateral knees S/P correction of deviated nasal septum Family History Unknown Prostate cancer Myocardial infarction Father Myocardial infarction Sister Denies family history of Ovarian cancer Breast cancer Colorectal cancer Social History Smoking Status: Former smoker Second Hand Exposure: No; Do You Dip or Chew Tobacco: No; Hx Alcohol Use: No Hx Substance Use: No Preferred Language: Cymro Communication Ability: Effective Visual Impairment: No Limitations Hearing Ability: Use of Hearing Aid Senior Benefits Analyst Required: No marital status: / Current Living Situation: Family Current Living Situation Comment: daughter and son in law are living with her while their house is built current occupational status: retired current occupation: worked at [employer] How many Children do You have: 2 Feels Safe at Home: Yes Childhood Exposure to Second-Hand Smoke: No Diet: regular caffeine: Yes during the past year weight has: remained stable Dental Care, Regularly: Yes Physical Activity Frequency: 1-2 Times per Week Seatbelt Use: always Sunscreen Use: Yes Assistive Devices: Glasses and Hearing Aid - Bilateral Review of Systems Review of Systems: ROS: Gen: Denies weakness, fevers, weight loss Eyes: No eye redness, or pain, no recent vision changes Resp: No SOB, no cough Cardio: No palpitations/irregular beats, no chest pain GI: as per HPI otherwise negative. : Denies pain on urination Skin: No jaundice, itching or new rashes Physical Exam Constitutional: WD/WN, vitals as above Eyes: PERRL, conjunctivae normal, anicteric sclerae ENMT: external ear and nose normal, oropharynx normal Neck: trachea midline, no thyromegaly Respiratory: normal respiratory effort, lungs clear to auscultation Cardiovascular: RRR, no murmur, no edema Gastrointestinal (Abdomen): normal bowel sounds, soft, nontender, no hepatosplenomegaly denies any discomfort w deep palpation Musculoskeletal: no cyanosis or clubbing, extremities motor strength 5/5 Skin: no rashes, warm and dry Neurologic: PERRL, EOMI, accommodation nl, no face palsy, no dysarthria Psychiatric: A+Ox3, euthymic affect Lymphatic: no cervical or axillary lymphadenopathy Results & Data Vital Signs (Past 12 Hours) Vital Signs Temp Pulse Pulse Resp BP BP Pulse Ox 11/02/22 11:19 80 18 158/70 H 92 11/02/22 10:48 85 18 164/74 H 95 11/02/22 09:44 85 18 164/81 H 96 11/02/22 07:15 88 11/02/22 07:16 87 18 162/82 H 95 11/02/22 06:30 81 15 146/68 H 94 11/02/22 06:00 84 13 160/74 H 93 11/02/22 05:30 87 13 153/76 H 93 11/02/22 05:00 83 15 149/73 H 94 11/02/22 04:57 85 14 139/69 11/02/22 04:31 88 11/02/22 04:00 85 18 97 11/02/22 03:30 85 17 96 11/02/22 03:00 88 16 95 11/02/22 02:46 88 17 169/68 H 11/02/22 02:44 91 H 15 161/70 H 95 11/02/22 02:45 89 11/02/22 02:27 36.7 C 102 H 16 138/71 97 O2 Del Method 11/02/22 11:19 Room Air 11/02/22 10:48 Room Air 11/02/22 09:44 Room Air 11/02/22 07:15 11/02/22 07:16 Room Air 11/02/22 06:30 Room Air 11/02/22 06:00 Room Air 11/02/22 05:30 Room Air 11/02/22 05:00 Room Air 11/02/22 04:57 11/02/22 04:31 11/02/22 04:00 Room Air 11/02/22 03:30 Room Air 11/02/22 03:00 Room Air 11/02/22 02:46 11/02/22 02:44 Room Air 11/02/22 02:45 11/02/22 02:27 Room Air Laboratory Results WBC 8, Hb 13, Hct 31, Plts 245, Na 141, K 3.8, Cl 106, CO2 28, BUN 20, Cr 0.9, glucose 144, LFTs normal. Lipase 3680. Diagnostic Findings CTAP w IV 11/02/22: 1. Mild heterogeneity and peripancreatic fat stranding/fluid at the tail the pancreas. This likely represents an acute pancreatitis. Recommend correlation with pancreatic enzymes. 2. A 15 mm right upper pole renal lesion is again noted. This was previously described as an angiomyolipoma. 3. Mild fullness within the left renal collecting system without nu hydronephrosis. No renal or ureteral stones identified. This is similar to the prior study.
[2022-11-02] MEDS: LOSARTAN POTASSIUM 50 MG TAB PO SCH (12:04)
[2022-11-02] MEDS: PANTOprazole 40 MG TAB PO SCH ×2 (12:04→20:10)
[2022-11-02] MEDS: FAMOTIDINE 20 MG in SYRINGE 3 ML IV SCH ×2 (12:05→21:09)
[2022-11-02] MEDS: LEVOTHYROXINE SODIUM 88 MCG TABLET PO SCH (12:05)
[2022-11-02] MEDS: LACTATED RINGER'S 1,000 ML IV SCH ×2 (12:06→20:12)
[2022-11-02] MEDS: amLODIPine BESYLATE 5 MG TAB PO SCH (12:06)
--- NOTE | 2022-11-02 15:47 | Electrocardiogram Report ---
Test Reason : Blood Pressure : / mmHG Vent. Rate : 082 BPM Atrial Rate : 082 BPM P-R Int : 246 ms QRS Dur : 082 ms QT Int : 364 ms P-R-T Axes : 064 001 046 degrees QTc Int : 425 ms Sinus rhythm with 1st degree A-V block Septal infarct , age undetermined Abnormal ECG When compared with ECG of 12-APR-2015 13:25, Septal infarct is now Present Nonspecific T wave abnormality, improved in Lateral leads QT has shortened Confirmed by Fausto Catalan ([id number]) on 11/02/2022 3:46:40 PM Referred By: REFERRED SELF Confirmed By:Fausto Catalan
[2022-11-02] MEDS ORDERED: MIRTAZAPINE TAB 15 MG TAB PO SCH (21:00)
[2022-11-02] MEDS ORDERED: SIMVASTATIN 20 MG TAB PO SCH (21:00)
[2022-11-02] MEDS ORDERED: GADOBUTROL 65ML VIAL IV ONE (22:36)
--- NOTE | 2022-11-03 00:07 | Magnetic Resonance Report ---
Exam(s): MRI ABDOMEN W/WO Contrast IV Amt: 5.5cc gadavist EXAM: MR Abdomen Without and With Intravenous Contrast CLINICAL HISTORY: Pancreatitis; do MRI panc w w/o contrast and MRI. TECHNIQUE: Multiplanar magnetic resonance images of the abdomen without and with intravenous contrast. CONTRAST: Patient received 5.5cc Gadavist of IV contrast COMPARISON: CT abdomen and pelvis without contrast performed at 0413 hrs. FINDINGS: Lung bases: Unremarkable. No mass. No consolidation. Liver: Unremarkable. No mass. Gallbladder and bile ducts: No cholelithiasis. No ductal dilation. Pancreas: There are two distinct areas of hyperintense fluid signal within the head and uncinate process of the pancreas which are lobulated in appearance. The more superior and anterior collection measures 8 x 8 x 10 mm and the more posterior and inferior collection, which appears as a multi lobulated or cluster of smaller collections measures 10 x 15 x 9 mm (series 8; images 80-11). These appear to communicate with the distal pancreatic duct. Evaluation is somewhat limited without high-resolution imaging through the pancreas. The pancreas otherwise demonstrates normal enhancement. No ductal dilation. No solid enhancing mass lesions. Spleen: Unremarkable. No splenomegaly. Adrenals: Unremarkable. No mass. Kidneys and ureters: Simple renal cysts noted bilaterally. The largest multilobulated cyst in the inferior pole of the left kidney measures 5.6 x 5.4 x 4.4 cm. Stomach and bowel: Unremarkable. No obstruction. Intraperitoneal space: Unremarkable. No significant fluid collection. Soft tissues: Unremarkable. Vasculature: Unremarkable. No abdominal aortic aneurysm. Lymph nodes: Unremarkable. No enlarged lymph nodes. IMPRESSION: 1. There are two distinct areas of hyperintense fluid signal within the head and uncinate process of the pancreas which are lobulated in appearance. The more superior and anterior collection measures 8 x 8 x 10 mm and the more posterior and inferior collection, which appears as a multi lobulated or cluster of smaller collections measures 10 x 15 x 9 mm (series 8; images 80-11). These appear to communicate with the distal pancreatic duct. Evaluation is somewhat limited without high-resolution imaging through the pancreas. The primary consideration is IPMN lesions. Recommend short-term interval follow-up. 2. The pancreas otherwise demonstrates normal enhancement. No ductal dilation. No solid enhancing mass lesions. 3. No cholelithiasis. No choledocholithiasis. No biliary ductal dilation. Electronically signed by: Luis Carlos Sanchez MD 11/03/22 00:06 AM
[2022-11-03] MEDS: LACTATED RINGER'S 1,000 ML IV SCH ×2 (04:45→13:24)
[2022-11-03] MEDS: LEVOTHYROXINE SODIUM 88 MCG TABLET PO SCH (04:46)
[2022-11-03 07:22] LABS: Basophils # (auto) 0.07 K/uL (0-0.2); Basophils % (auto) 0.9 %; Eosinophils # (auto) 0.33 K/uL (0-0.50); Eosinophils % (auto) 4.1 %; Hematocrit (blood only) 38.7 % (37.0-47.0); Hemoglobin 12.8 g/dl (12.0-16.0); Immature Granulocytes # (auto) 0.02 K/uL (0.01-0.20); Immature Granulocytes % (auto) 0.2 %; Lymphocytes # (auto) 1.35 K/uL (1.2-3.4); Lymphocytes % (auto) 16.7 %; Mean Corpuscular Hemoglobin 30.7 pg (25.0-34.0); Mean Corpuscular Hgb Conc 33.1 g/dL (32.0-36.0); Mean Corpuscular Volume 92.8 fL (80.0-100.0); Mean Platelet Volume 10.2 fL (9.4-12.4); Monocytes # (auto) 0.75 K/uL (0.11-0.59); Monocytes % (auto) 9.3 %; Neutrophils # (auto) 5.58 K/uL (1.40-6.50); Neutrophils % (auto) 68.8 %; Platelet Count 230 K/uL (130-400); RDW Standard Deviation 44.1 fL (36.4-46.3); Red Blood Count 4.17 M/uL (4.20-5.40)
[2022-11-03 08:08] LABS: Albumin Level 3.8 gm/dl (3.4-5.0); Bilirubin,Total 0.6 mg/dl (0.2-1.0); Calcium 9.2 mg/dl (8.6-10.3); Magnesium 1.8 mg/dl (1.7-2.4); Potassium 3.8 mmol/L (3.5-5.1)
[2022-11-03 08:14] LABS: Albumin Globulin Ratio 1.6 (0.9-2); BUN Creatinine Ratio 11.8 (10-20); Creatinine Clr Calc Pharmacy 42.9 ml/min; Est GFR (African American) 82.9 ml/min; Est GFR (Non-African American) 71.5 ml/min; Globulin 2.4 gm/dl (2.5-4.0); Total Protein 6.2 gm/dl (6.0-8.3)
[2022-11-03] MEDS: amLODIPine BESYLATE 5 MG TAB PO SCH (08:25)
[2022-11-03] MEDS: FAMOTIDINE 20 MG in SYRINGE 3 ML IV SCH (08:26)
[2022-11-03] MEDS: LOSARTAN POTASSIUM 50 MG TAB PO SCH (08:26)
[2022-11-03] MEDS: PANTOprazole 40 MG TAB PO SCH (08:27)
--- NOTE | 2022-11-03 09:22 | Gastroenterology Progress Note ---
Date of Service November 03, 2022 Assessment & Plan (1) Pancreatitis: Plan 1. Clear liqs po now. If no N/V or pain then may have a low fat normal consistency diet for lunch and if does well w that may be discharged today. 2. OP EUS in 6-8 wks. Our office will contact her to arrange. Admission and Anticipated Discharge Date Admission Date: November 02, 2022 Supervising Physician Co-Signing Physician Notes I performed a history and physical examination of the patient today, including specifically on physical exam - soft abdomen. I have discussed the patient's management with the advanced practitioner. Please refer to the nurse practitioner's note for the documented findings and plan of care. EUS as OP. Recall GI if needed. Subjective 87, Female, pancreatitis ? etiology. MRI/MRCP w two panc head cysts: 1cm, 1.5cm. No stones. CT w mild pancreatitis, w/o gallbladder or bile duct abnormalities. Lipase 3680->352 Pain resolved today. Up and around walking in the room. Review of Systems Review of Systems: ROS: Gen: Denies weakness, fevers, weight loss Eyes: No eye redness, or pain, no recent vision changes Resp: No SOB, no cough Cardio: No palpitations/irregular beats, no chest pain GI: as per HPI otherwise negative. : Denies pain on urination Skin: No jaundice, itching or new rashes Physical Exam Constitutional: WD/WN, vitals as above Eyes: PERRL, conjunctivae normal, anicteric sclerae ENMT: external ear and nose normal, oropharynx normal Neck: trachea midline, no thyromegaly Respiratory: normal respiratory effort, lungs clear to auscultation Cardiovascular: RRR, no murmur, no edema Gastrointestinal (Abdomen): normal bowel sounds, soft, nontender, no hepatosplenomegaly Musculoskeletal: no cyanosis or clubbing, extremities motor strength 5/5 Skin: no rashes, warm and dry Neurologic: PERRL, EOMI, accommodation nl, no face palsy, no dysarthria Psychiatric: A+Ox3, euthymic affect Lymphatic: no cervical or axillary lymphadenopathy Results & Data Vital Signs (Past 12 Hours) Vital Signs Temp Pulse Resp BP Pulse Ox O2 Del Method 11/03/22 08:01 36.9 C 87 18 142/67 H 94 Room Air Laboratory Results WBC 8.1, Hb 12.8, Hct 38.7, plts 230, Na 143, K 3.8, Cl 110, CO2 29, BUN 9, Cr 0.76, glucose 90. Lipase 3680->352. LFTs normal. Diagnostic Findings Panc MRI/MRCP 11/02/22: 1. There are two distinct areas of hyperintense fluid signal within the head and uncinate process of the pancreas which are lobulated in appearance. The more superior and anterior collection measures 8 x 8 x 10 mm and the more posterior and inferior collection, which appears as a multi lobulated or cluster of smaller collections measures 10 x 15 x 9 mm (series 8; images 80-11). These appear to communicate with the distal pancreatic duct. Evaluation is somewhat limited without high-resolution imaging through the pancreas. The primary consideration is IPMN lesions. Recommend short-term interval follow-up. 2. The pancreas otherwise demonstrates normal enhancement. No ductal dilation. No solid enhancing mass lesions. 3. No cholelithiasis. No choledocholithiasis. No biliary ductal dilation. CTAP w IV 11/02/22: 1. Mild heterogeneity and peripancreatic fat stranding/fluid at the tail the pancreas. This likely represents an acute pancreatitis. Recommend correlation with pancreatic enzymes. 2. A 15 mm right upper pole renal lesion is again noted. This was previously described as an angiomyolipoma. 3. Mild fullness within the left renal collecting system without nu hydronephrosis. No renal or ureteral stones identified. This is similar to the prior study.
--- NOTE | 2022-11-03 12:29 | Discharge Summary ---
Discharge Summary Date of Service November 03, 2022 Notes For Next Care Provider Needs E[facility]ER[facility] 6-[facility]-to be arranged by GI Medication Changes From Visit Avoid fish oil Admission HPI Per Admitting Provider This patient is an 87-year-old female with a history of hypothyroidism, asthma, prediabetes, osteopenia, HTN, IBS, fibromyalgia, depression, GERD, hyperlipidemia, who presents to the ER with left upper quadrant abdominal pain radiating to the left flank starting yesterday evening at 6 PM. No fevers or chills but has had some nausea but no vomiting with the pain and feels slightly dizzy. She was at her PCP office 3 days ago with complaints of intermittent nausea and dizziness x2 weeks and had been started on mirtazapine also at that time for difficulty with sleep. She also recently started Gemtesa for overactive bladder. Stools have been somewhat loose but no black tarry stools or blood in her stool. No urinary symptoms. No history of abdominal surgeries except a hysterectomy. She tried taking antacids at home without any relief. In the ER, she was afebrile and mildly tachycardic and mildly hypertensive. Pul se ox was normal on room air. She was found to have an elevated lipase at 3680, but labs were otherwise unremarkable except a mildly elevated calcium at 10.7. LFTs were normal. A CT of the abdomen/pelvis showed pancreatitis in the tail of the pancreas as well as a 13 mm pancreatic head hypodense foci favoring cystic neoplasm. She also had mild fullness in the left renal collecting system witho ut hydronephrosis similar to prior study, no ureteral stones identified. The gallbladder appeared normal. She was given IV fluids, IV morphine and Zofran as well as Tylenol. She will be admitted to the hospital service for acute pancreatitis. Principal Dx & Hospital Course #1 = Principal Diagnosis (1) Acute pancreatitis: Presents with first episode of acute pancreatitis with epigastric abdominal pain, evidence of pancreatitis at the tail on CT abdomen/pelvis, and elevated lipase in the 3000 range LFTs are normal. CT abdomen/pelvis without abnormalities of the biliary tract or gallbladder. Did have hypodense lesion in the head of the pancreas. She does not drink alcohol. She did recently start mirtazapine and Gemtesa but not sure if these are associated with pancreatitis necessarily. Calcium is mildly elevated but likely more due to mild dehydration and improved by the next day with IVF hydration Pain is completely resolved with 1 dose of morphine and Tylenol I as well as bowel rest. Received IV Zofran for nausea x 1 dose MRCP shows likely pancreatic cyst/IPMNs,no biliary tract obstruction or p ancreatic duct obstruction Tolerating low fat diet at discharge, doing very well, lipase returned to 300 -dc to home -EUS/ERCP in 6-8 weeks to further eval the pancreatic cysts -continue low fat diet and stop fish oil supplement given by Optometry for dry eyes (2) Hypertension: Blood pressures are controlled -Continue home amlodipine and losartan (3) Vitamin D deficiency: ok to continue home calcium and vitamin D (4) Prediabetes: Hemoglobin A1c 6.1% in 08/2022 No need for Accu-Cheks (5) Osteopenia: Noted continue home vitamin D and calcium (6) Hypothyroidism: TSH normal at 2.0 in 08/2022 Continue home levothyroxine which is 75 mcg on 2 days a week and 88 mcg on 3 days a week (7) GERD without esophagitis: Continue PPI also gave IV Pepcid with ongoing pancreatitis but no need to continue on discharge (8) Depression: Continue mirtazapine (9) Vertigo: Has had issues with hearing loss and vertigo, recently had MRI of the internal auditory canal 2 weeks ago which was normal Continue meclizine as needed and follow-up with ENT and audiology as an outpatient Already is in vestibular therapy with PT Plan DVT prophylaxis-Lovenox SQ, SCDs Disposition-dc to home Discharge Exam Constitutional WD/WN, vitals as above Neck trachea midline, no thyromegaly Respiratory normal respiratory effort, lungs clear to auscultation Cardiovascular RRR, no murmur, no edema Chest (Breasts) Chest: normal inspection of chest Gastrointestinal (Abdomen) Inspection/Auscultation: abdomen normal to inspection and normal bowel sounds; abdomen not distended Percussion/Palpation: abdomen soft; abdomen nontender and no abdominal mass Musculoskeletal Extremities: extremities normal to inspection; no cyanosis and no clubbing Skin no rashes, warm and dry Neurologic moves all extremities and awake; no focal motor deficits Psychiatric A+Ox3, euthymic affect Lymphatic no lymphedema Updated Medication List Medication Instructions Recorded Confirmed Type multivitamin (Daily Multiple 1 tab PO DAILY 10/28/18 11/02/22 History tablet) calcium carb,cit ER 600 mg-vit D3 2 tab PO DAILY 10/29/18 11/02/22 History 12.5 mcg (500 unit) tablet,ext.rel levothyroxine 75 mcg tablet 75 mcg PO .COMPLEX #36 tabs 01/23/22 11/02/22 Rx simvastatin 20 mg tablet 20 mg PO QPM #90 tabs 02/16/22 11/02/22 Rx mupirocin 2 % topical ointment 1 applic topical .qhs #15 grams 03/07/22 11/02/22 Rx levothyroxine 88 mcg tablet 88 mcg PO 5XWK #64 tabs 06/07/22 11/02/22 Rx losartan 100 mg tablet 100 mg PO DAILY #90 tabs 10/24/22 11/02/22 Rx mirtazapine 15 mg tablet 15 mg PO .COMPLEX #30 tabs 10/30/22 11/02/22 Rx amlodipine 10 mg tablet 10 mg PO DAILY 11/02/22 11/02/22 History meclizine 25 mg tablet 25 mg PO TID PRN Dizziness 11/02/22 11/02/22 History pantoprazole 40 mg tablet,delayed 40 mg PO DAILY 11/02/22 11/02/22 History release vibegron 75 mg tablet (Gemtesa) 75 mg PO DAILY 11/02/22 11/02/22 History Hospital Stay Data Consultations 11/02/22 07:24 ED Decision to Admit Stat 11/02/22 10:58 Consult Gastroenterology Routine Diagnostic Imagining Performed 11/02/22 03:22 CT abd pelvis IV con only Stat 11/02/22 12:09 MR abdomen wo/w con Routine Pending Results Patient Have Any Pending Studies at Discharge: No Discharge Instructions Given to Patient (Per Discharging Provider) Drink plenty of fluids and stick with a low fat diet. You will need an endoscopic ultrasound of the pancreas to take a closer look at the cysts in 6-8 weeks once the inflammation from your pancreatitis has settled down. It is not clear what the cause of your pancreatitis was as all of the usual causes were ruled out. It may be related to these cysts. Total Time Total Time Spent Total Time Spent (In Minutes): 35 min Total Time Includes: Examination of the Patient, Discharge Planning, Medication Reconciliation and Communication With Other Providers (GI [facility]) Coding Level of Care Code 82553 INP/OBS DISCH >30 MIN Diagnoses Acute pancreatitis K85.90 Hypertension I10 Vitamin D deficiency E55.9 Prediabetes R73.03 Osteopenia M85.80 Hypothyroidism E03.9 GERD without esophagitis K21.9 Depression F32.9 Vertigo R42
[2022-11-04] MEDS ORDERED: LEVOTHYROXINE SODIUM 75 MCG TABLET PO SCH (06:30)
== END 2022-11-03 14:43 | disposition home or self-care (01) ==
LOC: EDINP 02:21 → ED 02:21 → EDINP 10:57 → 3W 17:53

== ENCOUNTER 2024-09-03 05:55 | Inpatient (IN) ==
--- NOTE | 2024-08-27 09:48 | Anesthesiology Consultation ---
Date of Service August 27, 2024 Assessment & Plan (1) Encounter for pre-operative examination: Chart Review Chart Review: Acceptable Risk for Surgery and Patient NOT seen in Pre Admission Testing Consults Requested none History Surgery Operation Date: 09/03/24 11:10 Proposed Procedures p Robotic Assisted Laparoscopic Partial Colectomy, Possible Open - Miguel Yeager DO, FACS Height/Weight Height: 5 ft 1 in Weight: 49.442 kg Allergies Allergy/AdvReac Type Severity Reaction Status Date / Time house dust Allergy Verified 08/26/24 07:40 mold Allergy Verified 08/26/24 07:40 No Known Drug Allergies Allergy Verified 08/26/24 07:40 pollen extracts Allergy Verified 08/26/24 07:40 cantaloupe AdvReac Intermediate Gastrointestinal Verified 08/26/24 07:41 Upset Medications Home Medications Medication Instructions Recorded Confirmed Last Taken multivitamin (Daily Multiple 1 tab PO DAILY 10/28/18 08/26/24 11/01/22 tablet) calcium ER 600 mg (as carb,cit)-D3 2 tab PO DAILY 10/29/18 08/26/24 08/05/24 12.5 mcg (500 unit) tablet, ext.rel amlodipine 10 mg tablet 10 mg PO [facility] 07/31/24 08/26/24 08/06/24 05:00 levothyroxine 88 mcg tablet 88 mcg PO 07/31/24 08/26/24 08/06/24 05:00 losartan 100 mg tablet 100 mg PO [facility] 07/31/24 08/26/24 08/06/24 05:00 mupirocin 2 % topical ointment 1 applic topical 07/31/24 08/26/24 Unknown pantoprazole 40 mg tablet,delayed 40 mg PO [facility] 07/31/24 08/26/24 08/05/24 release levothyroxine 75 mcg tablet 75 mcg PO .COMPLEX #24 tabs 08/03/24 08/26/2408/03 metronidazole 500 mg tablet 500 mg PO .COMPLEX #3 tabs 08/14/24 08/26/24 Unknown neomycin 500 mg tablet 500 mg PO .COMPLEX pre-op #3 tabs 08/14/24 08/26/24 Unknown ascorbic acid (vitamin C) 500 mg 500 mg PO QAM 08/26/24 08/26/24 Unknown tablet (Vitamin C) cholecalciferol (vitamin D3) 10 10 mcg PO QAM 08/26/24 08/26/24 Unknown mcg (400 unit) tablet (Vitamin D3) vitamin A-vitamin C-vit E-min 1 tab PO QAM 08/26/24 08/26/24 Unknown tablet Past Medical History Medical History (Updated 08/27/24 @ 09:54 by Suraj Calix MD) Encounter for pre-operative examination Peripheral neuropathy Hypothyroidism Hypertension Prediabetes diet controlled Hx of varicose veins "had some type of injection to collapse and get rid of them" Hx of polyarthritis Hx of peripheral neuropathy Pancreatic cyst pt unaware of this Hx of osteopenia [place] hx Hx of irritable bowel syndrome pt denies Hx of gastroesophageal reflux (GERD) pt denies Kidney cyst, acquired pt unaware of this History of fibromyalgia History of diverticulosis History of depression Hx of chronic sinusitis Hx of allergic rhinitis Hx of pancreatitis (2022) Hx of vertigo Internal hemorrhoids Hearing loss b/l hearing aids Hx of insomnia Serotonin withdrawal syndrome remote hx History of genital warts History of cellulitis right hand>resolved Anemia due to blood loss (05/20/11) hx Past Family History Family History Unknown Prostate cancer Myocardial infarction Father Myocardial infarction Sister Other No family history of adverse response to anesthesia Denies family history of Ovarian cancer Breast cancer Colorectal cancer Past Surgical History Surgical History History of carpal tunnel release of both wrists History of esophagogastroduodenoscopy (EGD) Hx of colonoscopy S/P revision of total knee right Hx of total knee arthroplasty bilateral knees S/P correction of deviated nasal septum Hx of cataract surgery rt/lt H/O tubal ligation H/O vaginal hysterectomy Social History Smoking Status: Former smoker Do You Dip or Chew Tobacco: No Smoking End Date: age 32; "only lightly smoked for 10 years" Hx Alcohol Use: Yes Alcohol type: wine alcohol intake frequency: other Hx Substance Use: No substance use type: does not use Testing Laboratory Results Laboratory Tests 08/14/24 11:01 WBC 9.54 Hgb 11.8 L Hct 36.4 L Plt Count 326 PT 10.7 INR 1.0 Sodium 142 Potassium 4.5 Chloride 105 Carbon Dioxide 29 BUN 19 Creatinine 0.87 Glucose 89 Electrocardiogram Date: 08/15/24 DICTATED BY: Nilay Tenorio MD Test Reason : Blood Pressure : */* mmHG Vent. Rate : 78 BPM Atrial Rate : 78 BPM P-R Int : 214 ms QRS Dur : 84 ms QT Int : 388 ms P-R-T Axes : 77 68 67 degrees QTcB Int : 442 ms Sinus rhythm with 1st degree A-V block Otherwise normal ECG When compared with ECG of 02-Nov-2022 02:50, Criteria for Septal infarct are no longer Present Confirmed by Nilay Tenorio ([id number]) on 08/15/2024 11:05:44 AM Other Testing left chest CT 07/2024: IMPRESSION: 1. No active pulmonary abnormality seen. 2. Left renal cyst noted.
[2024-09-03] MEDS ORDERED: PROPOFOL IV EMULSION 10 MG/ML 20 ML VIAL IV ONE (06:33)
[2024-09-03] MEDS ORDERED: ONDANSETRON INJ 2 MG/ML 2 ML VIAL ONE (06:33)
[2024-09-03] MEDS ORDERED: ROCURONIUM BROMIDE 10 MG/ML 5 ML VIAL IV ONE ×2 (06:33→08:34)
[2024-09-03] MEDS ORDERED: fentaNYL citrate PF 100 MCG/2 ML VIAL ONE (06:33)
[2024-09-03] MEDS ORDERED: SUGAMMADEX SODIUM 200 MG/2 ML VIAL IV ONE (06:33)
[2024-09-03] MEDS ORDERED: LIDOCAINE 2% 2 ML VIAL/AMP(20MG/ML) INFIL ONE (06:33)
[2024-09-03] MEDS ORDERED: DEXAMETHASONE SOD INJ 4 MG/ML VIAL ONE (06:33)
[2024-09-03] MEDS ORDERED: MIDAZOLAM HCL 1 MG/ML 2ML VIAL ONE (06:33)
[2024-09-03] MEDS ORDERED: diphenhydrAMINE 50 MG/ML VIAL ONE (06:36)
[2024-09-03] MEDS ORDERED: PHENYLEPHRINE 100MCG/ML 5ML SYR ONE ×2 (06:36→08:20)
[2024-09-03] MEDS: LR 15ML/HR IV SCH (06:40)
[2024-09-03] MEDS ORDERED: ACETAMINOPHEN 1000 MG/100 ML IV IV ONE (06:42)
[2024-09-03] MEDS ORDERED: ALBUMIN HUMAN 5% 12.5 GM/250 ML VIAL IV ONE (06:42)
[2024-09-03] MEDS ORDERED: ONDANSETRON INJ 2 MG/ML 2 ML VIAL IV PRN (06:44)
[2024-09-03] MEDS ORDERED: ATROPINE SULFATE 0.1 MG/ML 10ML SYR IV PRN (06:44)
[2024-09-03] MEDS ORDERED: ePHEDrine sulfate 50 MG/ML AMP IV PRN (06:44)
[2024-09-03] MEDS ORDERED: HYDROmorphone INJ 1 MG/ML SYRINGE IV PRN (06:44)
--- NOTE | 2024-09-03 07:31 | History & Physical Bridge Note ---
Date of Service September 03, 2024 History & Physical Bridge Note I have examined the patient, reviewed the History & Physical and in the interval since the performance of the History & Physical I have noted the following changes of clinical significance: no changes noted
[2024-09-03] MEDS: cefOXitin 2,000 MG in DEXTROSE 5 % MINI-B 50 ML IV SCH ×2 (07:43→15:28)
[2024-09-03] MEDS ORDERED: HYDROmorphone INJ 2 MG/ML SYR/VIAL ONE (08:36)
[2024-09-03] MEDS ORDERED: LABETALOL HCL IV 5 MG/ML 20ML IV ONE (09:02)
[2024-09-03] MEDS: INDOCYANINE GREEN 25 MG VIAL INJ ONE (10:03)
--- NOTE | 2024-09-03 11:17 | Post Operative Brief Note ---
PG Immediate Post Op with CF Date of Surgery September 03, 2024 Pre & Post Diagnosis Operation Date: 09/03/24 07:30 Pre-Op Diagnosis: Colon Cancer Post-Op Diagnosis: Colon Cancer I identified the patient and participated in the time-out.: Yes Procedure Operation Date: 09/03/24 07:30 Actual Procedures p Robotic extended right hemicolectomy with intracorporeal anastomosis- Miguel Yeager DO, FACS Surgeon Miguel Yeager DO, [employer] Surveying [employer] Rodman Nohemy Hong Estimated Blood Loss 25 Findings Consistent with Post-Op Diagnosis Tumor palpable at hepatic flexure. Tattoo along transverse colon. No evidence of metastasis. Extended right hemicolectomy performed with high ligation of ileocolic vessels, right colic, and right and left branch of the middle colic blood vessel. Intracorporeal anastomosis performed, [id number] functional end-to-end ileocolic anastomosis. ICG showed good blood flow. Leak test negative. Exparel injected. Specimens Specimen Description: Extended right hemicolectomy Proximal small bowel Drains Woodard Catheter (Removed at end of case) Anesthesia Type General Complications none Disposition Accompanied Patient To Recovery: No Disposition: Recovery Room
[2024-09-03] MEDS: BUPIVACAINE 0.5 % 5 MG/1 ML MPF 30ML VIAL ONE (11:20)
[2024-09-03] MEDS: BUPIVACAINE LIPOSOME 1.3% 266 MG/20 ML VIAL ONE (11:20)
--- NOTE | 2024-09-03 11:54 | Cancer Operative Report ---
Post Operative Report Pre & Post Diagnosis Operation Date: 09/03/24 07:30 Pre-Op Diagnosis: Colon Cancer Post-Op Diagnosis: Colon Cancer I identified the patient and participated in the time-out.: Yes Procedure Operation Date: 09/03/24 07:30 Actual Procedures p Robotic extended right colectomy(Not Applicable) - Miguel Yeager DO, GARO Surgeon Miguel Yeager DO, FACS Loop Sewer Nohemy Hong Estimated Blood Loss 25 Findings Consistent with Post-Op Diagnosis Tumor palpable at hepatic flexure. Tattoo along transverse colon. No evidence of metastasis. Extended right hemicolectomy performed with high ligation of ileocolic vessels, right colic, and right and left branch of the middle colic blood vessel. Intracorporeal anastomosis performed, [id number] functional end-to-end ileocolic anastomosis. ICG showed good blood flow. Leak test negative. Exparel injected. 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 The risks of the procedure were discussed, all questions were answered, and the patient agreed to proceed with surgery as planned. Description of Procedure The patient had an antibiotic infused bowel prep overnight. The patient was properly identified, consented, and taken to the operating room where she was placed in the supine position. General endotracheal anesthesia was induced. SCDs, Woodard catheter, OG tube, and a safety belt were placed. Preoperative antibiotics were administered. The patient's abdomen was prepped and draped in the standard sterile fashion. Surgical timeout was performed and all parties were in agreement that this was the correct patient and procedure to be performed and we continued as planned. An incision was made in the left upper quadrant. The Veress needle was inserted and saline drop test confirmed entry into the abdomen. The abdomen was insufflated with carbon dioxide which the patient tolerated without incident. Veress needle was removed and the abdomen was entered using the Optiview technique and a 5 mm camera and a 8 mm robotic port. The introducer was removed and the abdomen inspected. No damage from initial trocar placement or Veress needle placement was identified. The tattoo was visible along the transverse colon. There was no evidence of metastatic disease in the 4 quadrants of the abdomen. 8 mm ports were then placed in the left lower quadrant and right lower quadrant. A 12 mm port was placed in the left upper quadrant just lateral to the umbilicus. A 5 mm benefits assistant port was placed in the left lower quadrant. Patient was placed in Trendelenburg position and rotated towards the left. The small bowel was swept away from the right lower quadrant. The robot was then docked and the camera and robotic instruments were inserted. The abdomen was again examined and there was no evidence of metastatic disease. The tattoo encompassed a large portion of the transverse colon. There was a palpable tumor at the hepatic flexure. I then elected to perform a medial to lateral dissection. The cecum was then grasped and elevated towards the anteri or abdominal wall revealing the ileocolic vascular pedicle. The peritoneum just underneath this was incised with scissors. Blunt dissection was then used to isolate the vessels. The vessels were circumferentially dissected. A white loaded robotic stapler was then used to divide the ileocolic vein and artery close to their base. Hemostasis appeared excellent. I then continued the dissection from a medial to lateral approach dissecting the retroperitoneal structures posteriorly away from the small bowel and colonic mesentery. The duodenum and pancreas were identified and protected throughout the case. I continued this dissection until we entered the lesser sac and continued laterally until the colon was nearly free of all adhesions except for the white line of Toldt. We then began dissection of the greater omentum off of the transverse colon mesentery. This was performed with blunt dissection and robotic vessel sealer. Once the medial to lateral dissection was completed, I then performed resection of the mesentery. The ileocolic pedicle and artery been divided. I then continued the resection of the mesentery and identified, as well as the right and left branches of the middle colic artery. These were divided using the vessel sealer and hemostasis appeared excellent. I then performed a lateral dissection using the vessel sealer to take down the white line of Toldt along the right colon. The dissection was continued distally to the distal transverse colon and the hepatic flexure was mobilized. The distal ileum was freed from its peritoneal attachments. Once the colon was completely mobilized it appeared that the small bowel would reach to the distal transverse colon easily without any tension. ICG was injected and the areas of proposed resection on both the small bowel and transverse colon appeared to have excellent blood flow. I then elected to perform a intracorporeal [id number] functional end-to-end ileocolic anastomosis. The ileum was divided with a blue loaded robotic stapler. The transverse colon was divided utilizing a green loaded robotic stapler x 2. The specimen was then placed in the right upper quadrant over the liver. Enterotomies were then made in the colon and small bowel utilizing the cutting feature of the vessel sealer without energy. A bopg-ki-ltty functional end-to-end anastomosis was then created utilizing the blue loaded 45 mm robotic stapler with 2 sequential fires towards the staple lines. The common enterotomy was then closed with a running 2-0 absorbable V-Loc suture which was then run back on itself in a Lembert fashion. A redundant piece of small bowel at the anastomosis was resected with a blue loaded stapler to prevent a blind sac. This was removed in an Endo Catch bag and sent as specimen labeled proximal ileum. ICG was injected again and the anastomosis appeared to have excellent blood flow as well as the staple lines. A leak test was then performed by submerging the anastomosis under water and compressing it to discover any bubbles. There was no evidence of any leak. There was no evidence of twisting of the bowel and hemostasis appeared excellent. The specimen was then grasped through the benefits assistant port with a laparoscopic grasper. The robot was undocked and insufflation ceased. The skin and fascia of the 12 m port site was extended for a few centimeters. A wound protector was then placed in this wound. The specimen was grasped with a Suraj and removed. It was assessed and appeared that the mass was palpable at the hepatic flexure and we had adequate margins. The fascia was then closed with #0 PDS suture. Exparel mixed with 0.5% Marcaine was injected in the fascia and subcutaneous tissues. The wound was irrigated and hemostasis appeared excellent. The skin of all port sites and the extraction site was closed with running 4-0 Monocryl subcuticular sutures. Dermabond was placed over the wounds. The Woodard catheter and OG tube were removed. The patient was extubated in the operating room and taken to the PACU where she recovered without apparent incident. All sponge, instrument, and needle counts were correct. The patient tolerated the procedure well. The colon specimen was sent to Pathology. The physician's benefits assistant was present and scrubbed for the entirety of the case. She was critical in positioning the patient, prepping and draping, retraction and exposure, docking of the robot and exchange of the robotic instruments driving the laparoscope, resection of the specimen and creation of the anastomosis, closure of the incisions, and placement of the dressings. Colon Resection Operation performed with curative intent: Yes Extent of colon and vascular resection: Extended R hemicolectomy: ileocolic,R colic (if present),middle colic I attest to the content of the Intraoperative Record and any orders documented therein. Any exceptions are noted below.
[2024-09-03] MEDS: fentaNYL citrate PF 100 MCG/2 ML VIAL IV PRN (12:15)
--- NOTE | 2024-09-03 13:14 | Anesthesiology Progress Note ---
Date of Service September 03, 2024 Anesthesia Post Procedure Vital Signs Vital Signs: Temp Pulse Pulse Resp BP Pulse Ox O2 Del Method 09/03/24 13:00 84 9 L 123/56 L 98 Nasal Cannula 09/03/24 12:45 83 11 L 117/56 L 98 Nasal Cannula 09/03/24 12:30 86 17 115/52 L 94 Nasal Cannula 09/03/24 12:20 36.8 C 87 12 121/55 L 96 Oxymask 09/03/24 12:15 88 12 129/57 L 95 Oxymask 09/03/24 12:00 87 24 114/51 L 94 Oxymask 09/03/24 11:50 88 21 126/65 99 Oxymask 09/03/24 11:44 37.0 C 93 H 22 143/66 H 99 Oxymask 09/03/24 06:24 36.7 C 92 H 18 137/94 99 Room Air O2 Flow Rate 09/03/24 13:00 2 09/03/24 12:45 2 09/03/24 12:30 2 09/03/24 12:20 2 09/03/24 12:15 5 09/03/24 12:00 5 09/03/24 11:50 10 09/03/24 11:44 10 09/03/24 06:24 Pain Intensity Abdomen: Pain Intensity: 4 Transfer of Care Handoff Completed per policy Notes Mental Status: alert / awake / arousable and participated in evaluation Patient Amnestic to Procedure: Yes Nausea / Vomiting: adequately controlled Pain: adequately controlled Airway Patency, RR, SpO2: stable & adequate BP & HR: stable & adequate Hydration State: stable & adequate Anesthetic Complications: no major complications apparent and Pt Satisfied with anesthetic care
[2024-09-03] MEDS ORDERED: MoRPHine SULFATE 2 MG/ML CARP IV PRN (13:49)
[2024-09-03] MEDS ORDERED: ACETAMINOPHEN 1,000 MG/100 ML VIAL IV PRN (13:49)
[2024-09-03] MEDS: LACTATED RINGER'S 1,000 ML IV SCH (14:12)
[2024-09-03] MEDS: MoRPHine SULFATE 4 MG/ML 1 ML CARP\\VIAL IV PRN (14:13)
[2024-09-03] MEDS ORDERED: ACETAMINOPHEN 10MG/ML Custom 700 MG in EMPTY BAG 0 ML IV PRN (14:15)
[2024-09-03] MEDS: ONDANSETRON INJ 2 MG/ML 2 ML VIAL IV PRN (14:21)
[2024-09-03] MEDS: oxyCODONE HCL IR 5 MG TAB (IMMEDIATE RELEASE) PO PRN (15:28)
[2024-09-03] MEDS: PROMETHAZINE 12.5 MG/50.5 ML BAG IV PRN (18:12)
[2024-09-04] MEDS: oxyCODONE HCL IR 5 MG TAB (IMMEDIATE RELEASE) PO PRN (02:50)
[2024-09-04] MEDS: LEVOTHYROXINE SODIUM 88 MCG TABLET PO SCH (05:54)
[2024-09-04] MEDS ORDERED: LEVOTHYROXINE SODIUM 88 MCG TABLET PO SCH (06:00)
[2024-09-04 06:44] LABS: Basophils # (auto) 0.04 K/uL (0.00-0.20); Basophils % (auto) 0.3 %; Eosinophils # (auto) 0.02 K/uL (0.00-0.50); Eosinophils % (auto) 0.1 %; Hemoglobin 10.6 g/dl (12.0-16.0); Immature Granulocytes # (auto) 0.08 K/uL (0.01-0.20); Immature Granulocytes % (auto) 0.5 %; Lymphocytes # (auto) 1.75 K/uL (1.20-3.40); Lymphocytes % (auto) 11.2 %; Mean Corpuscular Hgb Conc 32.1 g/dL (32.0-36.0); Mean Corpuscular Volume 90.4 fL (80.0-100.0); Mean Platelet Volume 10.3 fL (9.4-12.4); Monocytes # (auto) 1.24 K/uL (0.11-0.59); Neutrophils # (auto) 12.44 K/uL (1.40-6.50); Neutrophils % (auto) 79.9 %; Platelet Count 353 K/uL (130-400); RDW Standard Deviation 45.8 fL (36.4-46.3); Red Blood Count 3.65 M/uL (4.20-5.40); White Blood Count 15.57 K/ul (4.8-10.8)
[2024-09-04] MEDS: PANTOprazole 40 MG TAB PO SCH (08:44)
[2024-09-04] MEDS: LOSARTAN POTASSIUM 50 MG TAB PO SCH (08:44)
[2024-09-04] MEDS: amLODIPine BESYLATE 5 MG TAB PO SCH (08:44)
--- NOTE | 2024-09-04 08:49 | Surgery Progress Note ---
Date of Service September 04, 2024 Assessment & Plan (1) S/P right hemicolectomy: Plan: POD 1 Laparoscopic robotic right hemicolectomy 09/03/[address] Yeager tolerating clear liquids without n/v , + belching vss , afebrile, wbc elevated continue abx for 24 hr post op h/h 10.33 , SCDs while in bed, will add DVT prophylaxis CMP still pending this AM IS q1h while awake pt OOB to BR reports abd pain, taking oral narcotics and IV , pt has prn IV Tylenol will continue clear liquid until return of bowel function incisions cdi no s/s infection Admission and Anticipated Discharge Date Admission Date: September 03, 2024 Subjective Denies n/v , flatus , fever/chills, Cp/sob +belching and abd pain Review of Systems Constitutional: no fever and no chills Respiratory: no dyspnea Cardiovascular: no chest pain Gastrointestinal: + abdominal pain and + belching; no naus ea and no vomiting Psychiatric: no confusion Physical Exam Constitutional: cooperative and comfortable; no acute distress Respiratory: normal respiratory effort and able to speak in complete sentences; no respiratory distress Cardiovascular: Rate/Rhythm: regular rate Gastrointestinal (Abdomen): Inspection/Auscultation: + abdominal surgical incision (cdi dermabond); abdomen not distended Psychiatric: A+Ox3, euthymic affect Results & Data Vital Signs (Past 12 Hours) Vital Signs Temp Pulse Pulse Resp BP Pulse Ox O2 Del Method 09/04/24 07:44 98.6 F 81 16 124/66 94 Room Air 09/04/24 03:08 98.2 F 87 16 132/66 93 Room Air 09/03/24 23:14 97.9 F 90 16 115/66 95 Room Air Results CBC w Diff Results: RBC 3.65 M/uL (4.20-5.40) L 09/04/24 WBC 15.57 K/ul (4.8-10.8) H 09/04/24 Hgb 10.6 g/dl (12.0-16.0) L 09/04/24 Hct 33.0 % (37.0-47.0) L 09/04/24 MCV 90.4 fL (80.0-100.0) 09/04/24 MCH 29.0 pg (25.0-34.0) 09/04/24 MCHC 32.1 g/dL (32.0-36.0) 09/04/24 RDW Standard Deviation 45.8 fL (36.4-46.3) 09/04/24 RDW Coefficient of Variation 14.0 % (11.5-14.5) 09/04/24 Plt Count 353 K/uL (130-400) 09/04/24 MPV 10.3 fL (9.4-12.4) 09/04/24 Neutrophils (%) (Auto) 79.9 % 09/04/24 Lymphocytes (%) (Auto) 11.2 % 09/04/24 Monocytes # (Auto) 1.24 K/uL (0.11-0.59) H 09/04/24 Eosinophils # (Auto) 0.02 K/uL (0.00-0.50) 09/04/24 Immature Granulocyte % (Auto) 0.5 % 09/04/24 Neutrophils # (Auto) 12.44 K/uL (1.40-6.50) H 09/04/24 Lymphocytes # (Auto) 1.75 K/uL (1.20-3.40) 09/04/24 Monocytes # (Auto) 1.24 K/uL (0.11-0.59) H 09/04/24 Eosinophils # (Auto) 0.02 K/uL (0.00-0.50) 09/04/24 Basophils # (Auto) 0.04 K/uL (0.00-0.20) 09/04/24 Immature Granulocyte # (Auto) 0.08 K/uL (0.01-0.20) 5 PG Care Time/CCT Total # of Minutes Spent Total Time Spent with Patient: Total time spent is greater than 50% in coordination of care (as documented) at patient's floor/unit and/or counseling patient: Coding Level of Care Code 63181 Post Operative Follow-Up Diagnoses S/P right hemicolectomy Z90.49
[2024-09-04 10:29] LABS: Albumin Level 3.4 gm/dl (3.4-5.0); Bilirubin,Total 0.5 mg/dl (0.2-1.0); Calcium 8.8 mg/dl (8.6-10.3); Potassium 3.8 mmol/L (3.5-5.1)
[2024-09-04 10:35] LABS: Albumin Globulin Ratio 1.4 (0.9-2); BUN Creatinine Ratio 15.9 (10-20); Creatinine Clr Calc Pharmacy 33.2 ml/min; Globulin 2.4 gm/dl (2.5-4.0); Total Protein 5.8 gm/dl (6.0-8.3)
[2024-09-04] MEDS: ACETAMINOPHEN 325 MG TAB PO SCH (14:11)
[2024-09-04] MEDS: KETOROLAC TROMETHAMINE 15 MG/ML VIAL IV SCH (14:12)
[2024-09-04] MEDS: ENOXAPARIN INJ 40 MG/0.4 ML SYR SQ ONE (14:16)
--- NOTE | 2024-09-05 07:54 | Surgery Progress Note ---
Date of Service September 05, 2024 Assessment & Plan (1) S/P right hemicolectomy: Plan: POD#2 s/p Laparoscopic robotic right hemicolectomy 09/03/[address] Yeager -Tolerating full liquids without N/V. Passing small amount of gas, however no BM. -Will advance to low fiber diet today to see how she does -Pain well controlled with scheduled oral Tylenol, IV Toradol, and as needed oxycodone for breakthrough pain. -VSS , afebrile, AM labs pending this morning -Continue Lovenox and SCDs while in bed for DVT prophylaxis -Encourage ambulation and OOB to chair while awake Admission and Anticipated Discharge Date Admission Date: September 03, 2024 Supervising Physician Co-Signing Physician Notes Patient seen and examined, labs pending, agree with above. POD #2 robotic extended right hemicolectomy with intracorporeal anastomosis. Overall doing well, tolerated full liquid yesterday. She has passed a small amount of gas but no bowel movement yet. She has been up and ambulating. Pain is better controlled with scheduled acetaminophen and Toradol. On exam she is afebrile stable vitals. Her abdomen is soft, appropriately tender to palpation, incisions with Dermabond in place, no evidence of infection. Labs pending. Will advance to low fiber diet, encourage ambulation and I-S. Potential discharge over the weekend. Dr. Neel rodriguez. Subjective Patient states she feels good this morning, pain well controlled Tolerating full liquids without any reported issues, denies N/V. Passing gas however no BM yet VSS, afebrile , denies fevers or chills overnight Review of Systems Constitutional: no fever and no chills Respiratory: no dyspnea Cardiovascular: no chest pain Gastrointestinal: + abdominal pain and + belching; no naus ea and no vomiting Psychiatric: no confusion Physical Exam Constitutional: WD/WN, vitals as above Respiratory: normal respiratory effort, lungs clear to auscultation Cardiovascular: Rate/Rhythm: regular rate Gastrointestinal (Abdomen): Abdomen soft, nondistended, +appropriate TTP over surgical sites. Incisions with Dermabond in place, c/d/i without any overlying signs of infection Skin: no rashes, warm and dry Results & Data Vital Signs (Past 12 Hours) Vital Signs O2 Del Method 09/04/24 20:45 Room Air PG Care Time/CCT Total # of Minutes Spent Total Time Spent with Patient: Total time spent is greater than 50% in coordination of care (as documented) at patient's floor/unit and/or counseling patient: Coding [place] [address] Post Operative Follow-Up Patient Type Established Diagnoses S/P right hemicolectomy Z90.49
[2024-09-05 08:28] LABS: Basophils # (auto) 0.08 K/uL (0.00-0.20); Basophils % (auto) 0.7 %; Eosinophils # (auto) 0.37 K/uL (0.00-0.50); Eosinophils % (auto) 3.2 %; Hematocrit (blood only) 33.9 % (37.0-47.0); Hemoglobin 10.8 g/dl (12.0-16.0); Immature Granulocytes # (auto) 0.04 K/uL (0.01-0.20); Immature Granulocytes % (auto) 0.3 %; Lymphocytes # (auto) 1.31 K/uL (1.20-3.40); Lymphocytes % (auto) 11.5 %; Mean Corpuscular Hemoglobin 28.7 pg (25.0-34.0); Mean Corpuscular Hgb Conc 31.9 g/dL (32.0-36.0); Mean Corpuscular Volume 90.2 fL (80.0-100.0); Mean Platelet Volume 10.4 fL (9.4-12.4); Monocytes # (auto) 0.91 K/uL (0.11-0.59); Neutrophils # (auto) 8.72 K/uL (1.40-6.50); Neutrophils % (auto) 76.3 %; Platelet Count 313 K/uL (130-400); RDW Coefficient of Variation 14.2 % (11.5-14.5); RDW Standard Deviation 46.8 fL (36.4-46.3); Red Blood Count 3.76 M/uL (4.20-5.40); White Blood Count 11.43 K/ul (4.8-10.8)
[2024-09-05 08:43] LABS: Albumin Globulin Ratio 1.4 (0.9-2); Albumin Level 3.5 gm/dl (3.4-5.0); BUN Creatinine Ratio 12.9 (10-20); Bilirubin,Total 0.4 mg/dl (0.2-1.0); Calcium 8.8 mg/dl (8.6-10.3); Creatinine Clr Calc Pharmacy 47.1 ml/min; Globulin 2.5 gm/dl (2.5-4.0); Potassium 3.5 mmol/L (3.5-5.1)
[2024-09-05] MEDS: ENOXAPARIN INJ 40 MG/0.4 ML SYR SQ SCH (08:54)
[2024-09-06] MEDS: LEVOTHYROXINE SODIUM 75 MCG TABLET PO SCH (06:15)
[2024-09-06 06:22] LABS: Basophils # (auto) 0.04 K/uL (0.00-0.20); Basophils % (auto) 0.3 %; Eosinophils # (auto) 0.69 K/uL (0.00-0.50); Eosinophils % (auto) 5.8 %; Hematocrit (blood only) 35.4 % (37.0-47.0); Hemoglobin 11.6 g/dl (12.0-16.0); Immature Granulocytes # (auto) 0.04 K/uL (0.01-0.20); Immature Granulocytes % (auto) 0.3 %; Lymphocytes # (auto) 1.22 K/uL (1.20-3.40); Lymphocytes % (auto) 10.3 %; Mean Corpuscular Hemoglobin 29.1 pg (25.0-34.0); Mean Corpuscular Hgb Conc 32.8 g/dL (32.0-36.0); Mean Corpuscular Volume 88.7 fL (80.0-100.0); Mean Platelet Volume 9.9 fL (9.4-12.4); Monocytes # (auto) 0.72 K/uL (0.11-0.59); Monocytes % (auto) 6.1 %; Neutrophils # (auto) 9.09 K/uL (1.40-6.50); Neutrophils % (auto) 77.2 %; Platelet Count 329 K/uL (130-400); RDW Coefficient of Variation 13.7 % (11.5-14.5); RDW Standard Deviation 45.1 fL (36.4-46.3); Red Blood Count 3.99 M/uL (4.20-5.40)
[2024-09-06 06:50] LABS: Albumin Globulin Ratio 1.4 (0.9-2); Albumin Level 3.6 gm/dl (3.4-5.0); BUN Creatinine Ratio 17.5 (10-20); Bilirubin,Total 0.4 mg/dl (0.2-1.0); Calcium 9.1 mg/dl (8.6-10.3); Creatinine Clr Calc Pharmacy 46.4 ml/min; Globulin 2.5 gm/dl (2.5-4.0); Potassium 3.5 mmol/L (3.5-5.1); Total Protein 6.1 gm/dl (6.0-8.3)
--- NOTE | 2024-09-06 08:15 | Surgery Progress Note ---
Date of Service September 06, 2024 Assessment & Plan (1) S/P right hemicolectomy: Plan: POD#3 s/p Laparoscopic robotic right hemicolectomy 09/03/[address] Yeager -Tolerating low fiber without N/V. Passing small amount of gas, and having BM. -Pain controlled -VSS , afebrile, c/o of urinary frequency and mild dysuria overnight , ordered U/A and culture if indicated -Continue Lovenox and SCDs while in bed for DVT prophylaxis -Encourage ambulation and OOB to chair while awake possible d/c later today, will wait for UA daughter involved in pts care on d/c continue low fiber diet on d/c for 6 weeks f/u o/p in office [address] Yeager return precautions reviewed Admission and Anticipated Discharge Date Admission Date: September 03, 2024 Subjective Pt feeling ok , abd discomfort/pain controlled with pains Tolerating low fiber without any reported issues, denies N/V. Passing gas , +BM VSS, afebrile , denies fevers or chills overnight , however c/o urinary frequency and mild dysuria Review of Systems Constitutional: no fever and no chills Respiratory: no dyspnea Cardiovascular: no chest pain Gastrointestinal: no bloating, no nausea and no vomiting Genitourinary: + dysuria and + urinary frequency Musculoskeletal: no muscle weakness Psychiatric: no confusion Physical Exam Constitutional: cooperative and comfortable; no acute distress Respiratory: normal respiratory effort and able to speak in complete sentences; no respiratory distress Cardiovascular: Rate/Rhythm: regular rate Gastrointestinal (Abdomen): Inspection/Auscultation: + abdominal surgical incision (cdi dermabond); abdomen not distended Psychiatric: A+Ox3, euthymic affect Results & Data Vital Signs (Past 12 Hours) Vital Signs Temp Pulse Resp BP Pulse Ox Pulse Ox O2 Del Method 09/06/24 07:54 97.9 F 89 16 150/76 H 95 Room Air 09/05/24 21:05 94 O2 Del Method 09/06/24 07:54 09/05/24 21:05 Room Air PG Care Time/CCT Total # of Minutes Spent Total Time Spent with Patient: Total time spent is greater than 50% in coordination of care (as documented) at patient's floor/unit and/or counseling patient: Coding Level of Care Code 53904 Post Operative Follow-Up Diagnoses S/P right hemicolectomy Z90.49
[2024-09-06 08:23] LABS: Appearance Urine Clear (Clear); Bilirubin Urine Negative (Negative); Blood Urine Negative (Negative); Color Urine Yellow; Glucose Urine UA Negative (Negative); Ketones Urine Negative (Negative); Leukocyte Esterase Urine Negative (Negative); Nitrite Urine Negative (Negative); Protein Urine Negative (Negative); Urobilinogen Urine Negative (Negative); pH Urine 8.5 (4.5-7.5)
[2024-09-06] MEDS ORDERED: ONDANSETRON 4 MG OD TAB PO PRN (12:10)
--- NOTE | 2024-09-06 12:17 | Communication Note ---
Date of Service: September 06, 2024 Nurse reached out, pt had c/o nausea. Went to see pt, she reports she was nauseated earlier, not currently. No vomiting, or dry heaving. She got a sharp stabbing LUQ pain that came and went, now no appetite. "Was feeling ok this am, now feeling blah", still passing flatus, abd soft. Discussed backing off diet until feeling better may order full liquids, or clears if desires, pt is ok with staying another night. Will order KUB if nausea returns or patient feels worse, repeat labs in AM.
[2024-09-07 07:22] VITALS: RESP 18; TEMP 98.1; O2SAT 97
[2024-09-07 07:32] LABS: Basophils # (auto) 0.05 K/uL (0.00-0.20); Basophils % (auto) 0.4 %; Eosinophils # (auto) 0.74 K/uL (0.00-0.50); Eosinophils % (auto) 5.9 %; Hematocrit (blood only) 38.2 % (37.0-47.0); Immature Granulocytes # (auto) 0.05 K/uL (0.01-0.20); Immature Granulocytes % (auto) 0.4 %; Lymphocytes # (auto) 1.39 K/uL (1.20-3.40); Lymphocytes % (auto) 11.1 %; Mean Corpuscular Hemoglobin 28.6 pg (25.0-34.0); Mean Corpuscular Hgb Conc 31.4 g/dL (32.0-36.0); Mean Corpuscular Volume 91.2 fL (80.0-100.0); Mean Platelet Volume 10.2 fL (9.4-12.4); Monocytes % (auto) 4.8 %; Neutrophils # (auto) 9.69 K/uL (1.40-6.50); Neutrophils % (auto) 77.4 %; Platelet Count 394 K/uL (130-400); RDW Coefficient of Variation 14.2 % (11.5-14.5); RDW Standard Deviation 47.7 fL (36.4-46.3); Red Blood Count 4.19 M/uL (4.20-5.40); White Blood Count 12.52 K/ul (4.8-10.8)
[2024-09-07 07:54] LABS: Albumin Globulin Ratio 1.4 (0.9-2); Albumin Level 3.5 gm/dl (3.4-5.0); BUN Creatinine Ratio 19.8 (10-20); Bilirubin,Total 0.4 mg/dl (0.2-1.0); Calcium 8.8 mg/dl (8.6-10.3); Creatinine Clr Calc Pharmacy 27.6 ml/min; Globulin 2.5 gm/dl (2.5-4.0); Potassium 3.7 mmol/L (3.5-5.1)
--- NOTE | 2024-09-07 08:54 | Surgery Progress Note ---
Date of Service September 07, 2024 Assessment & Plan (1) S/P right hemicolectomy: Plan: POD#4 s/p Laparoscopic robotic right hemicolectomy 09/03/[address] Hill WBC 12 (11.8). Vitals stable, no fevers Feeling well. tolerating diet and having + bowel function. pain is minimal Incisions c/d/i Eager for discharge will plan on d/c to home today on a low fiber diet d/c instructions reviewed, f/u in the office in [address] hill Admission and Anticipated Discharge Date Admission Date: September 03, 2024 Subjective Patient feels fairly well. Tolerating diet without further nausea/vomiting. She is passing gas and some looser stools. Pain is minimal. Wants to go home. Physical Exam Physical Exam: awake/alert, no distress Respiratory: normal respiratory effort Gastrointestinal (Abdomen): Inspection/Auscultation: + abdominal surgical incision (c/d/i with dermabond, no signs of infection) Percussion/Palpation: + abdomen tender (mild marco antonio incisional discomfort to palpation) and abdomen soft Results & Data Vital Signs (Past 12 Hours) Vital Signs Temp Pulse Resp BP Pulse Ox O2 Del Method 09/07/24 07:21 98.1 F 77 18 123/64 97 Room Air PG Care Time/CCT Total # of Minutes Spent Total Time Spent with Patient: Total time spent is greater than 50% in coordination of care (as documented) at patient's floor/unit and/or counseling patient: Coding Level of Care Code 28987 Post Operative Follow-Up Diagnoses S/P right hemicolectomy Z90.49
[2024-09-07 09:16] VITALS: BP 123/63; PULSE 85
--- NOTE | 2024-09-08 15:02 | Discharge Summary ---
Date of Service September 07, 2024 Principal Diagnosis s/p robotic right hemicolectomy Discharge Exam awake, alert, no distress Respiratory normal respiratory effort Gastrointestinal (Abdomen) Inspection/Auscultation: + abdominal surgical incision (c/d/i with dermabond, no signs of infection ) Percussion/Palpation: + abdomen tender and abdomen soft Discharge Data Allergies Allergy/AdvReac Type Severity Reaction Status Date / Time house dust Allergy Mild nasal Verified 09/03/24 06:16 congestion mold Allergy Mild nasal Verified 09/03/24 06:16 congestion pollen extracts Allergy Mild nasal Verified 09/03/24 06:16 congestion No Known Drug Allergies Allergy Verified 09/03/24 06:16 cantaloupe AdvReac Intermediate Gastrointestinal Verified 09/03/24 06:16 Upset Procedures Performed Operation Date: 09/03/24 07:30 Actual Procedures p Robotic Assisted Laparoscopic Partial Colectomy(Not Applicable) - Miguel Yeager DO, FACS Hospital Course (1) S/P right hemicolectomy: This is an 89yF with a PMH of colon cancer who underwent a robotic right hemicolectomy with Dr. Yeager on 09/03/24. The patient tolerated the procedure well, see op note for full details. Post operatively she was able to void. She was started on clear liquids. On POD#1 dvt prophylaxis was started. She was advanced to a full liquid diet. Pain controlled with prn pain meds. Pulmonary toilet and activity were encouraged. On POD#2 patient passing flatus and advanced to a low fiber diet. On POD#3 patient passing gas and having BM. She had an episode of pain and nausea that did resolve. UA checked for frequency which was negative for UTI. On POD#4 the patient denied any further episodes of nausea and pain controlled. She was tolerating a low fiber diet and deemed stable for discharge to home. She was instructed to follow up in the office in 2 weeks for a post op check. Total Time Total Time Spent Total Time Spent (In Minutes): 15 Discharge Plan Discharge Items Patient Disposition: Home - Self-Care Reason For Visit: Colon Cancer Discharge Diagnosis: laparoscopic, robotic assisted right hemicolectomy Condition on Discharge: Good Activity: As commented below Lifting: No more than 10 pounds Bathing Comment: you can shower however no soaking in bath tubs, hot tubs, or pools x2 weeks Exercise/Sports: Wait until after follow-up appointment Non-emergency contact: Primary Care Provider and Surgeon Call non-emergency contact if: you have any medication questions, your symptoms worsen, your pain is worsening, you have a fever, your temperature is above 101.5, your wound has increased redness, your wound has increased drainage and your wound pain has increased Follow-up/Referrals: Miguel Yeager DO, FACS [Physician] - 09/22/24 10:30 am ( follow up in the office in 2 weeks ) Miya Zelaya PA-C [Physician Motorcycle Engine Assembler] - 09/12/24 11:00 am (Miya is a Physician Motorcycle Engine Assembler that works along with Dr. Roman. She will see you for your follow up. Please arrive 15 min. prior to your scheduled appointment. Thank you!) Diet: Low Fiber Addtl Attending Provider Instructions: SPECIAL CARE INSTRUCTIONS: * You have skin glue over your incisions called Dermabond. you may shower with this on. It will tend to dissolve and fall off within a couple weeks. Do not pick at the skin glue * You may shower, let soap and water run over incisions. However, DO NOT soak in bath tubs, hot tubs, or pools for 2 weeks * No lifting greater than 10lbs. No strenuous exercise until cleared by surgeon. Light walking is accepted. * No driving while taking narcotic pain medication; wait at least 3 days * No drinking alcohol while taking narcotic pain medication * May use Ibuprofen/Tylenol over the counter for pain as tolerated. Do not exceed 3grams of Tylenol per 24 hours * Expect some swelling and bruising. * Diet- low fiber Call your doctor if: * Temperature above 101 degrees, nausea/vomiting, fever/chills * Pain not relieved by pain medicine ordered * There is increased drainage or redness from any incision * You have any unanswered questions or concerns [phone]. FOLLOW UP VISIT: If not already scheduled, please call the office for a follow-up visit. Office Pending Studies at Discharge: Yes Studies:: surgical pathology Stand-Alone Forms: My [facility] [employer] Pain - Opioid Pain Management Medications and DC Order Prescriptions: New oxycodone 5 mg tablet 5 mg PO Q6H PRN (Reason: pain) Qty: 14 0RF Rx Instructions: Initial therapy post surgery Continued levothyroxine 75 mcg tablet 75 mcg PO .COMPLEX Qty: 24 1RF Rx Instructions: 75 mcg orally; TAKE 1 TABLET BY MOUTH SUNDAY AND SUNDAY calcium carb, citrate-vit D3 600 mg calcium- 500 unit tablet extended release 2 tab PO DAILY multivitamin [Daily Multiple] tablet 1 tab PO DAILY amlodipine [Norvasc] 10 mg tablet 10 mg PO QAM Rx Instructions: TAKE 1 TABLET BY MOUTH ONCE DAILY pantoprazole [Protonix] 40 mg tablet,delayed release (DR/EC) 40 mg PO QAM Rx Instructions: TAKE 1 TABLET BY MOUTH ONCE DAILY mupirocin 2 % ointment 1 applic topical UD Rx Instructions: Apply small amount to the external rim of the nostril at bedtime PRN nasal dryness and nose bleeds losartan [Cozaar] 100 mg tablet 100 mg PO QAM levothyroxine 88 mcg tablet 88 mcg PO UD Rx Instructions: Take Sunday-Sunday ascorbic acid (vitamin C) [Vitamin C] 500 mg Tablet 500 mg PO QAM cholecalciferol (vitamin D3) [Vitamin D3] 10 mcg (400 unit) Tablet 10 mcg PO QAM cyanocobalamin (vitamin B-12) 1,000 mcg Tablet, Sublingual 1,000 mcg SUBLINGUAL DAILY Discontinued neomycin 500 mg tablet 500 mg PO .COMPLEX Qty: 3 0RF Rx Instructions: 500 mg orally Take 1 tab at 1pm, 2pm, 7pm the day before surgery; metronidazole 500 mg tablet 500 mg PO .COMPLEX Qty: 3 0RF Rx Instructions: Take 1 tablet at 1pm, 2pm, 7pm day before surgery Discharge Orders: Discharge Order (Routine); Ordered 09/07/24 Ordered By: Nohemy Bhandari/Other Patient Handouts: Low-Fiber Diet Admission Data Admit Date/Time: 09/03/24 09:43 Attending Provider: Miguel Yeager Admit Provider: Miguel Yeager Primary Care Provider: Shaina Roman Other Providers: Tim Shaikh Other Interventions: Discharge Summary Assessment (RN) Last Done: 09/07/24 09:15 Coding Level of Care Code 04863 IN/OBS DISCH 30 MIN/LESS Diagnoses S/P right hemicolectomy Z90.49
== END 2024-09-07 10:17 | disposition home or self-care (01) | DRG 331 ==
LOC: ASU 05:55 → 3W 09:43